=== PATIENT | female | born 1945 | race Caucasian/White ===

== ENCOUNTER 2017-08-07 08:00 | Outpatient (CLI) | payer MEDICARE, OTHER | END 2017-08-07 08:01 | disposition home or self-care (01) | LOC: LAB.WCP 08:00 | PROVIDERS: ATTEND Family Medicine | DX: R31.0 Gross hematuria (principal) | CPT/HCPCS: 87086 ==

== ENCOUNTER 2017-11-22 08:28 | Outpatient (CLI) | payer MEDICARE, OTHER ==
--- NOTE | 2017-11-22 10:55 | CT Report ---
DATE OF SERVICE: 11/22/2017 CT OF THE ABDOMEN AND PELVIS WITHOUT CONTRAST: 11/22/2017 CLINICAL INDICATION: Right flank pain. TECHNIQUE: Axial CT images of the abdomen and pelvis were obtained without oral or intravenous contrast, according to renal stone protocol. No previous CT is available for comparison. FINDINGS: Limited evaluation of the lung bases demonstrates mild emphysema. ABDOMEN: The liver is enlarged, measuring 22 cm craniocaudal. No focal hepatic lesion is seen. The spleen, pancreas, adrenal glands and left kidney appear unremarkable. The right kidney demonstrates a nonobstructing 7 x 7 x 6 mm calculus in the lower pole. The gallbladder is unremarkable. No bowel dilatation, free gas or free fluid is present. No abdominal adenopathy is present. PELVIS: Postoperative changes of hysterectomy are present. Incidental note is made of a vascular phlebolith in the right pelvis. No distal ureterolithiasis or bladder calculus is identified. No hydroureter is present. Osseous structures demonstrate degenerative changes. IMPRESSION: NONOBSTRUCTING 7 MM RIGHT RENAL CALCULUS. HEPATOMEGALY. In accordance with CT protocol optimization, one or more of the following dose reduction techniques were utilized for this exam: automated exposure control, adjustment of mA and/or KV based on patient size, or use of iterative reconstructive technique. TD: 11/22/2017 11:54
== END 2017-11-22 08:29 | disposition home or self-care (01) ==
LOC: DI 08:28
PROVIDERS: ATTEND Family Medicine
DX: N20.0 Calculus of kidney (principal); R16.0 Hepatomegaly, not elsewhere classified
CPT/HCPCS: 74176

== ENCOUNTER 2017-12-06 13:41 | Outpatient (CLI) | payer MEDICARE, OTHER ==
--- NOTE | 2017-12-06 16:06 | Mammography Report ---
DIGITAL DIAGNOSTIC BILATERAL MAMMOGRAM: 12/06/2017 CLINICAL INDICATION: Breast pain. TECHNIQUE: Bilateral CC, MLO, right true lateral views. At the time of the examination, the patient identified a focus of maximal tenderness in the right upper central breast, where markers were placed. COMPARISON: 10/14/2016, 11/20/2015, 10/21/2014, 10/07/2014, 07/31/2013, 2011, 03/09/2011, 02/02/2010. FINDINGS: The breasts again demonstrate heterogeneously dense fibroglandular parenchyma bilaterally. Coarse, typically benign calcifications are present. No suspicious masses, clustered microcalcifications, or regions of architectural distortion are identified. Specifically, no mammographic abnormality is appreciated in the right upper central breast, at the site indicated by the markers. IMPRESSION: BENIGN FINDINGS. RECOMMENDATION: ROUTINE ANNUAL SCREENING UNLESS OTHERWISE CLINICALLY INDICATED. BIRADS CATEGORY 2-BENIGN FINDINGS. STANDARD QUALIFYING STATEMENTS: 1. This examination was reviewed with the aid of Computer-Aided Detection (CAD). 2. A negative or benign imaging report should not delay biopsy if clinically suspicious findings are present. Consider surgical consultation if warranted. More than 5% of cancers are not identified by imaging. 3. Dense breasts may obscure an underlying neoplasm. TD: 12/06/2017 16:04
== END 2017-12-06 13:42 | disposition home or self-care (01) ==
LOC: DI 13:41
PROVIDERS: ATTEND Family Medicine
DX: N64.4 Mastodynia (principal)
CPT/HCPCS: 77066

== ENCOUNTER 2018-02-27 14:52 | Emergency (ER) | payer OTHER, MEDICARE ==
--- NOTE | 2018-02-27 15:43 | XRAY Report ---
EXAM: RIGHT SHOULDER RADIOGRAPHY EXAM DATE: 02/27/2018 03:32 PM. CLINICAL HISTORY: Fall, pain. COMPARISON: None. TECHNIQUE: 3 views. FINDINGS: Bones: Osteopenia. No definite fracture or other bone lesion. Joints: Moderate degenerative changes. Anatomic alignment. Soft tissues: Unremarkable. Clear visualized lung. IMPRESSION: Degenerative changes. No acute disease. [facility] Referring Provider Line: [phone] SITE ID: [id number]
--- NOTE | 2018-02-27 17:14 | CT Preliminary Report ---
Exam: CT UPPER EXTREMITY RIGHT W/O IMPRESSION: 1. AC joint shows moderate osteoarthritic change. The glenohumeral joint is unremarkable. 2. No fluid collections, no masses are seen. Visualized lungs appear unremarkable. Included ribs also show no fractures. [facility] SITE ID: [id number]
--- NOTE | 2018-02-27 17:17 | CT Report ---
EXAM: RIGHT CLAVICLE/STERNOCLAVICULAR JOINT CT WITHOUT CONTRAST EXAM DATE: 02/27/2018 04:38 PM. CLINICAL HISTORY: Severe shoulder pain status post fall, can't abduct. COMPARISON: None. TECHNIQUE: Thin-section axial images were acquired of the clavicle(s)/sternoclavicular joint(s) witho ut contrast. Post-processing: Coronal and sagittal reformats. Other: None. In accordance with CT protocol optimization, one or more of the following dose reduction techniques w ere utilized for this exam: automated exposure control, adjustment of mA and/or KV based on patient s ize, or use of iterative reconstructive technique. FINDINGS: Bones: No fracture or bone lesion. Joints: AC joint shows moderate osteoarthritic change. The glenohumeral joint is unremarkable. Musculature: Normal. No fatty atrophy. Other: No fluid collections, no masses are seen. Visualized lungs appear unremarkable. Included ribs also show no fractures. IMPRESSION: 1. AC joint shows moderate osteoarthritic change. The glenohumeral joint is unremarkable. 2. No fluid collections, no masses are seen. Visualized lungs appear unremarkable. Included ribs also show no fractures. [facility] Referring Provider Line: [phone] SITE ID: [id number]
--- NOTE | 2018-02-27 18:06 | ED Physician Documentation ---
History of Present Illness - Stated complaint Stated Complaint: RT SHLDR PX - Chief complaint Chief Complaint: Ext Problem - Additonal information Additional information: hx from pt 72 f missed bottom ring ladder and fell sideways striking head (no LOC) and right shoulder no LOC no NV no neck pain no numbness or weakness cant move R shoulder Review of Systems Musculoskeletal: reports: Joint pain (R shoulder). denies: Neck pain (no major severe pain) Neurologic: reports: Head injury. 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 - Present Medications Home Medications: Ambulatory Orders Medication Instructions Recorded Confirmed Aspirin [Aspir-Low] 81 mg PO DAILY 01/20/16 01/20/16 Citalopram Hydrobromide 40 mg PO DAILY 01/20/16 01/20/16 [Citalopram HBr] Cyclobenzaprine [Flexeril] 10 mg PO TID 01/20/16 01/20/16 Hydrochlorothiazide 25 mg PO DAILY 01/20/16 01/20/16 Levothyroxine [Synthroid] 75 mcg PO QDAC 01/20/16 01/20/16 Simvastatin 40 mg PO DAILY 01/20/16 01/20/16 Cyclobenzaprine [Flexeril] 10 mg PO TID PRN #20 tablet 02/27/18 Lidocaine Patch 5% [Lidoderm Patch] 1 each TOP DAILY PRN #10 patch 02/27/18 Losartan [Cozaar] 1 tab PO DAILY 02/27/18 02/27/18 - Allergies Allergies/Adverse Reactions: Allergies Allergy/AdvReac Type Severity Reaction Status Date / Time codeine AdvReac Itching Verified 02/27/18 15:06 meperidine HCl * AdvReac Nausea Verified 02/27/18 15:06 [From Demerol] - Social History Does the pt smoke?: No Smoking Status: Never smoker Does the pt drink ETOH?: No - Immunizations Immunizations are current?: Yes - POLST Patient has POLST: No PD ED PE NORMAL - Vitals Vital signs reviewed: Yes - HEENT HEENT: No: Atraumatic (small scalp hematoma), PERRL (post cataract surgery equal ) - Neck Neck: No bony TTP - Cardiac Cardiac: RRR - Respiratory Respiratory: No respiratory distress, Clear bilaterally - Extremities Extremities: Other (R shoulder: no clavicle AC or scapula TTP, TTP ant prox humerus, able to internally and externally rotate, unable to ABD at all, MSV intact) Results - Vitals Vitals: Vital Signs - 24 hr 02/27/18 15:01 Temperature 36.9 C Heart Rate 81 Respiratory 14 Rate Blood Pressure 156/88 H O2 Saturation 96 Oxygen O2 Source Room air - Rads (name of study) xray Radiology: See rad report (per rad no fx, per my read posible "light bulb" / pposterior dislocation, so got CT) CT Radiology: See rad report (OA of AC, glenohumeral jt unremarkable) Departure - Departure Disposition: Home, Self Care Clinical Impression: Rotator cuff (capsule) sprain Qualifiers: Encounter type: initial encounter Laterality: right Qualified Code(s): S43.421A - Sprain of right rotator cuff capsule, initial encounter Shoulder contusion Qualifiers: Encounter type: initial encounter Laterality: right Qualified Code(s): S40.011A - Contusion of right shoulder, initial encounter Instructions: ED Head Injury Closed, ED Torn Rotator Cuff Follow-Up: Christine Valeljo DO [Primary Care Provider] - [facility] [Provider Group] Prescriptions: Cyclobenzaprine [Flexeril] 10 mg PO TID PRN #20 tablet PRN Reason: Spasms Lidocaine Patch 5% [Lidoderm Patch] 1 each TOP DAILY PRN #10 patch PRN Reason: Pain Comments: The xray and the CT scan do not show any fractures or dislocations Because you are unable to lift your arm at all, I suspect you have injured the rotator cuff / torn a shoulder muscle For now it is OK for you to go home with a sling and pain medications ( lidocaine and a muscle relaxant and you can take tylenol as well) It is important that you take off the sling and do some hanging range of motion exercises every day to prevent scar tissue and adhesions from forming in your shoulder Also recommend ice to decrease pain and inflammation Please call orthopedics for follow up - you need to call the clinic to make an appointment Also I do not think you have a severe head injury, but please read over the head injury information and return to the ER if worse
[2018-02-27] MEDS ORDERED: ACETAMINOPHEN 325 MG TABLET PO STA (18:08)
[2018-02-27] MEDS ORDERED: LIDOCAINE PATCH 5% TOP PRN (18:08)
[2018-02-27] MEDS ORDERED: CYCLOBENZAPRINE 10 MG TABLET PO STA (18:08)
[2018-02-27 18:33] VITALS: BP 168/93
== END 2018-02-27 18:32 | disposition home or self-care (01) ==
LOC: ED 14:52
DX: S43.421A Sprain of right rotator cuff capsule, initial encounter (principal); S40.011A Contusion of right shoulder, initial encounter; S00.03XA Contusion of scalp, initial encounter; W11.XXXA Fall on and from ladder, initial encounter; Y99.0 Civilian activity done for income or pay; I10 Essential (primary) hypertension; E78.00 Pure hypercholesterolemia, unspecified; E03.9 Hypothyroidism, unspecified; Z79.82 Long term (current) use of aspirin
CPT/HCPCS: 1040M; 73030; 73200; 99283; A9270

== ENCOUNTER 2018-03-19 16:27 | Outpatient (CLI) | payer OTHER, MEDICARE ==
--- NOTE | 2018-03-20 08:28 | MRI Report ---
EXAM: RIGHT SHOULDER MRI WITHOUT CONTRAST EXAM DATE: 03/19/2018 05:16 PM. CLINICAL HISTORY: Right shoulder pain/weakness. COMPARISON: Radiographs 02/27/2018. TECHNIQUE: Multiplanar, multisequence T1-weighted and fluid-sensitive sequences of the shoulder witho ut contrast. Other: None. FINDINGS: Rotator Cuff: Ill-defined full-thickness tears involving the supraspinatus and infraspinatus measurin g greater than 4 cm anteroposterior with approximately 2.6 cm retraction. Mild supraspinatus and infr aspinatus atrophy. Moderate edema within the infraspinatus muscle and musculotendinous junction may r eflect a more recent injury. Small amount of thickening and increased T2 signal involving distal fibe rs of the upper subscapularis. Long Head Biceps Tendon: Intact, demonstrating normal course, signal and morphology. Labrum: Intact. No tear is identified. Bones and Articular Surfaces: No significant articular cartilage defects are seen. Superior subluxati on of the humeral head nearly articulating with the undersurface of the acromion. Acromioclavicular Joint: Ruff-zo-lydkljko degenerative change. Type II acromion. IMPRESSION: 1. Extensive full-thickness tears of the supraspinatus and infraspinatus with 2.6 cm retraction. 2. Prominent edema involving the infraspinatus muscle may reflect more recent infraspinatus injury. 3. Distal subscapularis tendinosis. 4. [id number]-[id number] degenerative change at the acromioclavicular joint. [facility] MUSCULOSKELETAL RADIOLOGY SECTION Referring Provider Line: [phone] SITE ID: [id number]
== END 2018-03-19 16:28 | disposition home or self-care (01) ==
LOC: DI 16:27
PROVIDERS: ATTEND Orthopaedic Surgery
DX: M25.511 Pain in right shoulder (principal); M75.101 Unspecified rotator cuff tear or rupture of right shoulder, not specified as traumatic

== ENCOUNTER 2018-05-29 08:17 | Outpatient (CLI) | payer MEDICARE, OTHER | END 2018-05-29 08:18 | disposition home or self-care (01) | LOC: DI 08:17 | PROVIDERS: ATTEND Family Medicine | DX: R06.00 Dyspnea, unspecified (principal); I51.7 Cardiomegaly | CPT/HCPCS: 93306 ==

== ENCOUNTER 2018-09-21 00:37 | Outpatient (CLI) | payer MEDICARE, OTHER | END 2018-09-21 00:38 | disposition critical access hospital (66) | LOC: EMS 00:37 | PROVIDERS: ATTEND Surgery | DX: R53.1 Weakness (principal); R10.9 Unspecified abdominal pain; R11.0 Nausea | CPT/HCPCS: A0425; A0427 ==

== ENCOUNTER 2018-09-21 00:50 | Emergency (ER) | payer MEDICARE, OTHER ==
[2018-09-21 01:03] VITALS: BP 143/68
--- NOTE | 2018-09-21 01:16 | ED Physician Documentation ---
History of Present Illness - Stated complaint Stated Complaint: ABD PAIN, NAUSEA - Chief complaint Chief Complaint: Neuro - History obtained from History obtained from: Patient, Family - History of Present Illness Timing: How many hours ago (2.5) Pain level max: 5 Pain level now: 0 Quality: crampy Radiates to: no Associated symptoms: nausea PD PAST MEDICAL HISTORY - Past Medical History Cardiovascular: Hypertension, High cholesterol Respiratory: None Endocrine/Autoimmune: HyPOthyroidism GI: None : None HEENT: Chronic hearing loss Psych: None Musculoskeletal: Other Derm: None - Past Surgical History Past Surgical History: Yes General: 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, 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 - Present Medications Home Medications: Ambulatory Orders Medication Instructions Recorded Confirmed Aspirin [Aspir-Low] 81 mg PO DAILY 01/20/16 01/20/16 Citalopram Hydrobromide 40 mg PO DAILY 01/20/16 01/20/16 [Citalopram HBr] Cyclobenzaprine [Flexeril] 10 mg PO TID 01/20/16 01/20/16 Hydrochlorothiazide 25 mg PO DAILY 01/20/16 01/20/16 Levothyroxine [Synthroid] 75 mcg PO QDAC 01/20/16 01/20/16 Simvastatin 40 mg PO DAILY 01/20/16 01/20/16 Cyclobenzaprine [Flexeril] 10 mg PO TID PRN #20 tablet 02/27/18 Lidocaine Patch 5% [Lidoderm Patch] 1 each TOP DAILY PRN #10 patch 02/27/18 Losartan [Cozaar] 1 tab PO DAILY 02/27/18 02/27/18 Cephalexin [Keflex] 500 mg PO TID 7 Days #21 capsule 09/21/18 - Allergies Allergies/Adverse Reactions: Allergies Allergy/AdvReac Type Severity Reaction Status Date / Time codeine AdvReac Itching Verified 02/27/18 15:06 meperidine HCl * AdvReac Nausea Verified 02/27/18 15:06 [From Demerol] - Social History Does the pt smoke?: No Smoking Status: Never smoker Does the pt drink ETOH?: No - Immunizations Immunizations are current?: Yes - POLST Patient has POLST: No Results - Vitals Vitals: Vital Signs - 24 hr 09/21/18 09/21/18 00:52 01:02 Temperature 36.6 C 36.6 C Heart Rate 71 70 Respiratory 18 16 Rate Blood Pressure 154/74 H 143/68 H O2 Saturation 97 98 Oxygen O2 Source Room air - EKG (time done) 0120 Rate: Rate (enter#) (76) Rhythm: NSR [place]: LAD Intervals: Normal [place] QRS: Normal Ischemia: Non specific changes Other comments: Other comments (artifacts) - Labs Labs: Laboratory Tests 09/21/18 09/21/18 09/21/18 01:21 01:21 01:21 WBC 14.3 H RBC 4.20 Hgb 13.4 Hct 39.5 MCV 94.2 MCH 32.0 H MCHC 34.0 RDW 13.1 Plt Count 236 MPV 7.4 L Neut # (Auto) 12.5 H Lymph # (Auto) 1.0 L [place] # (Auto) 0.6 Eos # (Auto) 0.2 Baso # (Auto) 0.0 Absolute Nucleated RBC 0.00 Nucleated RBC % 0.0 Sodium 138 Potassium 3.2 L Chloride 100 L Carbon Dioxide 28 Anion Gap 10.0 BUN 21 H Creatinine 0.7 Estimated GFR (MDRD) 82 L Glucose 134 H Calcium 9.2 Total Bilirubin 0.9 AST 29 ALT 21 Alkaline Phosphatase 67 Troponin I < 0.04 Total Protein 7.4 Albumin 4.3 Globulin 3.1 Albumin/Globulin Ratio 1.4 Lipase 30 Urine Color Urine Clarity Urine pH Ur Specific [place] Urine Protein Urine Glucose (UA) Urine Ketones Urine Occult Blood Urine Nitrite Urine Bilirubin Urine Urobilinogen Ur Leukocyte Esterase Urine RBC Urine WBC Ur Squamous Epith Cells Urine Bacteria Ur Microscopic Review Urine Culture Comments 09/21/18 03:25 WBC RBC Hgb Hct MCV MCH MCHC RDW Plt Count MPV Neut # (Auto) Lymph # (Auto) [place] # (Auto) Eos # (Auto) Baso # (Auto) Absolute Nucleated RBC Nucleated RBC % Sodium Potassium Chloride Carbon Dioxide Anion Gap BUN Creatinine Estimated GFR (MDRD) Glucose Calcium Total Bilirubin AST ALT Alkaline Phosphatase Troponin I Total Protein Albumin Globulin Albumin/Globulin Ratio Lipase Urine Color YELLOW Urine Clarity CLEAR Urine pH 6.0 Ur Specific [place] 1.020 Urine Protein NEGATIVE Urine Glucose (UA) NEGATIVE Urine Ketones NEGATIVE Urine Occult Blood NEGATIVE Urine Nitrite NEGATIVE Urine Bilirubin NEGATIVE Urine Urobilinogen 0.2 (NORMAL) Ur Leukocyte Esterase MODERATE H Urine RBC 0-5 Urine WBC 6-10 H Ur Squamous Epith Cells FEW Squamous Urine Bacteria Few Ur Microscopic Review INDICATED Urine Culture Comments INDICATED PD MEDICAL DECISION MAKING - ED course Complexity details: re-evaluated patient, considered differential (Gastritis, pancreatitis, atypical ACS, pneumonia, UTI, ), d/w patient, d/w family ED course: 0204 patient and spouse informed of test results. Patient states that she has no pain nor is she feeling nauseous. But she does feel dehydrated so we will give her IV fluids. She was also given potassium pill for a low potassium. 0300 patient tolerated oral fluids. IV infusing. Denies any pain or nausea. 03 56 inform of positive urinary tract infection. Patient wants to go home. We will discharged on Keflex. Departure - Departure Disposition: Home, Self Care Clinical Impression: Hypokalemia UTI (urinary tract infection) Qualifiers: Urinary tract infection type: acute cystitis Hematuria presence: without hematuria Qualified Code(s): N30.00 - Acute cystitis without hematuria Vomiting Qualifiers: Vomiting type: unspecified Vomiting Intractability: non-intractable Nausea presence: with nausea Qualified Code(s): R11.2 - Nausea with vomiting, unspecified Condition: Stable Instructions: ED Diet Vomiting Diarrhea, Diet Clear Liquid Dc, Diet High Potassium Dc, ED Bladder Infec Cystitis Female Ch Prescriptions: Cephalexin [Keflex] 500 mg PO TID 7 Days #21 capsule Comments: Drinks 6-8 glasses of water a day. Finish the prescribed antibiotic for your UTI. It foods that are high in potassium using the list that was given to you. Urine cultures also pending. Follow-up with your primary doctor in a week. If worse return to the emergency room.
--- NOTE | 2018-09-21 01:24 | XRAY Report ---
Reason: chest pain Procedure Date: 09/21/2018 Accession Number: [id number] / [id number] Procedure: XR - Chest 1 View X-Ray CPT Code: 69217 FULL RESULT: EXAM: CHEST RADIOGRAPHY EXAM DATE: 09/21/2018 01:17 AM. CLINICAL HISTORY: Chest pain. COMPARISON: None. TECHNIQUE: 1 view. FINDINGS: Lungs/Pleura: No focal opacities evident. No pleural effusion. No pneumothorax. Mediastinum: Within exam limitations, the cardiomediastinal contour is normal. Other: None. IMPRESSION: Normal single view chest. [facility]
[2018-09-21 01:26] LABS: EOSINOPHILS # (AUTO) 0.2 10^3/uL (0.0-0.7); EOSINOPHILS % (AUTO) 1.1 %; HGB - HEMOGLOBIN 13.4 g/dL (12.0-16.0); LYMPHOCYTES % (AUTO) 7.2 %; MEAN CORPUSCULAR VOLUME 94.2 fL (81.0-99.0); MEAN PLATELET VOLUME 7.4 fL (7.9-10.8); MONOCYTES # (AUTO) 0.6 10^3/uL (0.0-1.0); MONOCYTES % (AUTO) 4.1 %; NEUTROPHILS # (AUTO) 12.5 10^3/uL (1.5-6.6); NEUTROPHILS % (AUTO) 87.6 %; PLT - PLATELET COUNT 236 10^3/uL (130-450); RED CELL DISTRIBUTION WIDTH 13.1 % (12.0-15.0); WHITE BLOOD COUNT 14.3 x10^3/uL (4.8-10.8)
[2018-09-21 01:36] LABS: ALBUMIN 4.3 g/dL (3.2-5.5); ALBUMIN/GLOBULIN RATIO 1.4 (1.0-2.2); BILIRUBIN,TOTAL 0.9 mg/dL (0.2-1.0); CALCIUM 9.2 mg/dL (8.5-10.3); CREATININE 0.7 mg/dL (0.4-1.0); TOTAL PROTEIN 7.4 g/dL (6.7-8.2)
[2018-09-21] MEDS ORDERED: SODIUM CHLORIDE 0.9% 1,000 ML IV ONE (02:05)
[2018-09-21] MEDS ORDERED: POTASSIUM CHLORIDE 20 MEQ TABLET PO STA (02:09)
[2018-09-21 03:35] LABS: BILIRUBIN,URINE NEGATIVE (NEGATIVE); GLUCOSE, URINE (UA) NEGATIVE (NEGATIVE); KETONES,URINE (UA) NEGATIVE (NEGATIVE); LEUKOCYTE ESTERASE, URINE MODERATE (NEGATIVE); NITRITE,URINE NEGATIVE (NEGATIVE); OCCULT BLOOD,URINE NEGATIVE (NEGATIVE); PROTEIN,URINE NEGATIVE (NEGATIVE); UROBILINOGEN,URINE 0.2 (NORMAL) E.U./dL (NORMAL)
[2018-09-21 03:43] LABS: CLARITY,URINE CLEAR (CLEAR)
[2018-09-21 03:44] LABS: BACTERIA,URINE Few /HPF (None Seen); RBC,URINE 0-5 /HPF (0-5); SQUAMOUS EPITHELIAL CELL,UR FEW Squamous (<= Few)
== END 2018-09-21 04:09 | disposition home or self-care (01) ==
LOC: EDUNIT# → ED 00:50
DX: E87.6 Hypokalemia (principal); N30.00 Acute cystitis without hematuria; R11.2 Nausea with vomiting, unspecified; I10 Essential (primary) hypertension; Z79.82 Long term (current) use of aspirin
CPT/HCPCS: 36415; 71045; 80053; 81001; 83690; 84484; 85025; 87086; 96360; 99283; 99284; A9270; 81003

== ENCOUNTER 2018-09-27 08:00 | Outpatient (CLI) | payer MEDICARE, OTHER ==
[2018-09-27 12:57] LABS: BASOPHILS % (AUTO) 0.7 %; EOSINOPHILS # (AUTO) 0.4 10^3/uL (0.0-0.7); EOSINOPHILS % (AUTO) 6.3 %; LYMPHOCYTES # (AUTO) 1.7 10^3/uL (1.5-3.5); LYMPHOCYTES % (AUTO) 26.6 %; MEAN CORPUSCULAR HEMOGLOBIN 32.3 pg (27.0-31.0); MEAN CORPUSCULAR HGB CONC 34.2 g/dL (32.0-36.0); MEAN CORPUSCULAR VOLUME 94.5 fL (81.0-99.0); MEAN PLATELET VOLUME 7.9 fL (7.9-10.8); MONOCYTES # (AUTO) 0.5 10^3/uL (0.0-1.0); MONOCYTES % (AUTO) 7.1 %; NEUTROPHILS # (AUTO) 3.9 10^3/uL (1.5-6.6); NEUTROPHILS % (AUTO) 59.3 %; PLT - PLATELET COUNT 276 10^3/uL (130-450); RED BLOOD COUNT 4.02 10^6/uL (4.20-5.40); WHITE BLOOD COUNT 6.5 x10^3/uL (4.8-10.8)
[2018-09-27 14:46] LABS: CALCIUM 9.6 mg/dL (8.5-10.3); CREATININE 0.6 mg/dL (0.4-1.0)
== END 2018-09-27 23:59 | disposition home or self-care (01) ==
LOC: LAB.WCP 08:00
PROVIDERS: ATTEND Family Medicine
DX: I10 Essential (primary) hypertension (principal)
CPT/HCPCS: 36415; 80048; 85025

== ENCOUNTER 2019-05-14 08:00 | Outpatient (CLI) | payer MEDICARE, OTHER ==
[2019-05-14 13:37] LABS: BASOPHILS # (AUTO) 0.1 10^3/uL (0.0-0.1); BASOPHILS % (AUTO) 0.8 %; EOSINOPHILS # (AUTO) 0.4 10^3/uL (0.0-0.7); EOSINOPHILS % (AUTO) 6.8 %; HGB - HEMOGLOBIN 11.7 g/dL (12.0-16.0); LYMPHOCYTES # (AUTO) 1.4 10^3/uL (1.5-3.5); LYMPHOCYTES % (AUTO) 22.5 %; MEAN CORPUSCULAR HEMOGLOBIN 30.5 pg (27.0-31.0); MEAN CORPUSCULAR HGB CONC 32.5 g/dL (32.0-36.0); MEAN PLATELET VOLUME 9.7 fL (7.9-10.8); MONOCYTES # (AUTO) 0.5 10^3/uL (0.0-1.0); MONOCYTES % (AUTO) 7.7 %; NEUTROPHILS # (AUTO) 3.7 10^3/uL (1.5-6.6); NEUTROPHILS % (AUTO) 61.9 %; PLT - PLATELET COUNT 375 10^3/uL (130-450); RED BLOOD COUNT 3.83 10^6/uL (4.20-5.40); RED CELL DISTRIBUTION WIDTH 12.4 % (12.0-15.0)
[2019-05-14 13:44] LABS: ALBUMIN 3.8 g/dL (3.2-5.5); ALBUMIN/GLOBULIN RATIO 1.1 (1.0-2.2); ALKALINE PHOSPHATASE 88 IU/L (42-121); ALT ALANINE AMINOTRANSFERASE 18 IU/L (10-60); AST ASPARTATE AMINOTRANSFERASE 21 IU/L (10-42); BILIRUBIN,TOTAL 0.6 mg/dL (0.2-1.0); BUN - BLOOD UREA NITROGEN 16 mg/dL (6-20); CALCIUM 9.6 mg/dL (8.5-10.3); CARBON DIOXIDE - CO2 27 mmol/L (21-32); CHLORIDE 103 mmol/L (101-111); CHOL/HDL RATIO 3.5 (<4.4); CHOLESTEROL 165 mg/dL; CREATININE 0.5 mg/dL (0.4-1.0); GFR - MDRD 120 (>89); GLUCOSE 108 mg/dL (70-100); HDL CHOLESTEROL 47 mg/dL; LDL CHOLESTEROL,CALCULATED 105 mg/dL; LDL/HDL RATIO 2.2 (<4.4); SODIUM 142 mmol/L (135-145); TOTAL PROTEIN 7.3 g/dL (6.7-8.2); VLDL CHOLESTEROL 13 mg/dL
== END 2019-05-14 23:59 | disposition home or self-care (01) ==
LOC: LAB.WCP 08:00
PROVIDERS: ATTEND Family Medicine
DX: I10 Essential (primary) hypertension (principal); E78.5 Hyperlipidemia, unspecified; E03.9 Hypothyroidism, unspecified
CPT/HCPCS: 36415; 80053; 80061; 83721; 84443; 85025

== ENCOUNTER 2020-04-20 11:19 | Observation (INO) | payer MEDICARE, OTHER ==
[2020-04-20 12:11] LABS: BASOPHILS # (AUTO) 0.1 10^3/uL (0.0-0.1); BASOPHILS % (AUTO) 0.8 %; EOSINOPHILS # (AUTO) 0.3 10^3/uL (0.0-0.7); EOSINOPHILS % (AUTO) 5.2 %; LYMPHOCYTES # (AUTO) 1.8 10^3/uL (1.5-3.5); LYMPHOCYTES % (AUTO) 30.2 %; MEAN CORPUSCULAR HEMOGLOBIN 32.6 pg (27.0-31.0); MEAN CORPUSCULAR HGB CONC 34.5 g/dL (32.0-36.0); MEAN CORPUSCULAR VOLUME 94.5 fL (81.0-99.0); MEAN PLATELET VOLUME 9.6 fL (7.9-10.8); MONOCYTES # (AUTO) 0.5 10^3/uL (0.0-1.0); MONOCYTES % (AUTO) 7.9 %; NEUTROPHILS # (AUTO) 3.3 10^3/uL (1.5-6.6); NEUTROPHILS % (AUTO) 55.6 %; PLT - PLATELET COUNT 297 10^3/uL (130-450); RED BLOOD COUNT 3.99 10^6/uL (4.20-5.40); RED CELL DISTRIBUTION WIDTH 12.2 % (12.0-15.0)
--- NOTE | 2020-04-20 12:24 | ED Physician Documentation ---
PD HPI FOCAL NEURO - Stated complaint Stated Complaint: L SIDE NUMBNESS - Chief complaint Chief Complaint: Neuro - History obtained from History obtained from: Patient - Additional information Additional information: 74-year-old woman with history of migraines and hypertension, otherwise very healthy. At 1035 this morning she developed numbness in the left tongue , Left side of the lips and left hand. She noticed nothing in the leg and there was no associated weakness. She has a mild right-sided headache with this. No history of stroke or TIA. No history of heart problems other than hypertension. 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 - Present Medications Home Medications: Ambulatory Orders Medication Instructions Recorded Confirmed Aspirin [Aspir-Low] 81 mg PO DAILY 01/20/16 01/20/16 Citalopram Hydrobromide 40 mg PO DAILY 01/20/16 01/20/16 [Citalopram HBr] Cyclobenzaprine [Flexeril] 10 mg PO TID 01/20/16 01/20/16 Hydrochlorothiazide 25 mg PO DAILY 01/20/16 01/20/16 Levothyroxine [Synthroid] 75 mcg PO QDAC 01/20/16 01/20/16 Simvastatin 40 mg PO DAILY 01/20/16 01/20/16 Cyclobenzaprine [Flexeril] 10 mg PO TID PRN #20 tablet 02/27/18 Lidocaine Patch 5% [Lidoderm Patch] 1 each TOP DAILY PRN #10 patch 02/27/18 Losartan [Cozaar] 1 tab PO DAILY 02/27/18 02/27/18 Cephalexin [Keflex] 500 mg PO TID 7 Days #21 capsule 09/21/18 - Allergies Allergies/Adverse Reactions: Allergies Allergy/AdvReac Type Severity Reaction Status Date / Time codeine AdvReac Itching Verified 04/20/20 11:28 meperidine HCl * AdvReac Nausea Verified 04/20/20 11:28 [From Demerol] - Social History Does the pt smoke?: No Smoking Status: Never smoker Does the pt drink ETOH?: No - Immunizations Immunizations are current?: Yes - POLST Patient has POLST: No PD ED PE NORMAL - Vitals Vital signs reviewed: Yes - General General: Alert and oriented X 3, No acute distress - HEENT HEENT: PERRL, EOMI - Neck Neck: Supple, no meningeal sign, No bony TTP - Cardiac Cardiac: RRR, No murmur - Respiratory Respiratory: No respiratory distress, Clear bilaterally - Abdomen Abdomen: Non tender - Back Back: No CVA TTP, No spinal TTP - Derm Derm: Normal color, Warm and dry - Extremities Extremities: Other (Although she complains of numbness in the left hand and left periorbital area, I am unable to corroborate this on examination.) - Neuro Neuro: Alert and oriented X 3, No motor deficit, No sensory deficit, Normal speech Eye Opening: Spontaneous Motor: Obeys Commands Verbal: Oriented GCS Score: 15 - Psych Psych: Normal mood NIHSS - Time Time: 12:05 - Level of Consciousness Level of consciousness: (0) Alert, Keenly responsive LOC Questions: (0) Answers both Q's correct LOC Commands: (0) Performs both correctly - Gaze Best Gaze: (0) Normal - Visual Visual: (0) No loss - Facial Palsy Facial Palsy: (0) Normal, symmetrical movement - Motor Arms (both separate) Motor Arm (right): (0) No drift Motor Arm (left): (0) No drift - Motor Legs (both separate) Motor Leg (right): (0) No drift Motor Leg (left): (0) No drift - Limb Ataxia Limb Ataxia: (0) Absent - Sensory Sensory: (0) Normal (Although she complains of numbness in the left hand and left periorbital area, I am unable to corroborate this on examination.) - Best Language Best Language: (0) No aphasia - Dysarthria Dysarthria: (0) Normal - Extinction and Inattention (formally neg Extinction and inattention: (0) No abnormality - Total Score/Results Total Score/Result: 0 Results - Vitals Vitals: Vital Signs - 24 hr 04/20/20 04/20/20 04/20/20 11:24 11:28 12:28 Temperature 97.5 C H Heart Rate 87 83 80 Respiratory 16 16 24 Rate Blood Pressure 145/87 H 166/90 H 158/103 H O2 Saturation 98 98 98 04/20/20 12:30 Temperature Heart Rate 78 Respiratory 28 H Rate Blood Pressure 152/78 H O2 Saturation 97 Oxygen O2 Source Room air - EKG (time done) 1143 Rate: Rate (enter#) (86) Rhythm: NSR [place]: LAD Intervals: Normal [place] QRS: Normal Ischemia: Non specific changes - Labs Labs: Laboratory Tests 04/20/20 04/20/20 04/20/20 11:34 11:47 11:47 WBC 6.0 RBC 3.99 L Hgb 13.0 Hct 37.7 MCV 94.5 MCH 32.6 H MCHC 34.5 RDW 12.2 Plt Count 297 MPV 9.6 Neut # (Auto) 3.3 Lymph # (Auto) 1.8 [place] # (Auto) 0.5 Eos # (Auto) 0.3 Baso # (Auto) 0.1 Absolute Nucleated RBC 0.00 Nucleated RBC % 0.0 Sodium 141 Potassium 3.3 L Chloride 96 L Carbon Dioxide 30 Anion Gap 15.0 H BUN 16 Creatinine 0.6 Estimated GFR (MDRD) 97 Glucose 105 H POC Whole Bld Glucose 107 H Calcium 10.1 Total Bilirubin 0.9 AST 24 ALT 20 Alkaline Phosphatase 60 Troponin I High Sens Total Protein 7.2 Albumin 4.5 Globulin 2.7 Albumin/Globulin Ratio 1.7 Lipase 79 H 04/20/20 11:47 WBC RBC Hgb Hct MCV MCH MCHC RDW Plt Count MPV Neut # (Auto) Lymph # (Auto) [place] # (Auto) Eos # (Auto) Baso # (Auto) Absolute Nucleated RBC Nucleated RBC % Sodium Potassium Chloride Carbon Dioxide Anion Gap BUN Creatinine Estimated GFR (MDRD) Glucose POC Whole Bld Glucose Calcium Total Bilirubin AST ALT Alkaline Phosphatase Troponin I High Sens 4.1 Total Protein Albumin Globulin Albumin/Globulin Ratio Lipase - Rads (name of study) CT/CTA head/neck Radiology: EMP read contemporaneously (No sign of stroke or hemorrhage, 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 She is in the window but with an NIH stroke scale of 0 I did not think TPA was indicated. After CT imaging the case was discussed by phone with Dr. Mccormack, neurology at [facility] who personally reviewed the images. Recommends medical management only with dual antiplatelet therapy for 90 days then aspirin alone as well as statin and blood pressure management. Recommends keeping her in the hospital for an MRI. Departure - Departure Disposition: ED Place in Observation Clinical Impression: TIA (transient ischemic attack) Condition: Stable
[2020-04-20 12:26] LABS: ALBUMIN 4.5 g/dL (3.2-5.5); ALBUMIN/GLOBULIN RATIO 1.7 (1.0-2.2); BILIRUBIN,TOTAL 0.9 mg/dL (0.2-1.0); CALCIUM 10.1 mg/dL (8.5-10.3); CREATININE 0.6 mg/dL (0.4-1.0); TOTAL PROTEIN 7.2 g/dL (6.7-8.2)
--- NOTE | 2020-04-20 12:53 | CT Report ---
PROCEDURE: ANGIO HEAD W/WO INDICATIONS: stroke like sx CONTRAST: IV CONTRAST: Optiray 320 ml: 80 PO CONTRAST: *NO PO CONTRAST TECHNIQUE: Precontrast images were performed separately and reported separately. After the administration of int ravenous contrast, 1 mm thick sections acquired through the [place] of [place]. Postcontrast 4.5 mm th ick sections then re-acquired from the foramen magnum to the vertex. 3-dimensional maximum-intensity -projection (MIP) and/or volume rendering reformats were acquired of the central intracranial vascula ture. For radiation dose reduction, the following was used: automated exposure control, adjustment of mA and/or kV according to patient size. COMPARISON: Prior head CT 12/01/2014. Correlation is also made with the accompanying neck angiogram an d noncontrast head CT. FINDINGS: Image quality: Excellent. Anterior circulation: Intracranial internal carotid arteries are normal in size and flow. Note is m kamari of a diminutive left A1 segment, with a correspondingly robust right A1 segment. This is consider ed to be a developmental variant of no clinical consequence. The flow within the paired anterior cer ebral arteries is otherwise normal and symmetric. The flow within the middle cerebral arteries is no rmal and symmetric. The anterior communicating artery is seen. No aneurysms are seen. Posterior circulation: Visualized portions of the vertebral arteries demonstrate normal caliber. Th e left vertebral artery largely terminates in the left posterior inferior cerebellar artery. The basi lar artery is small in size. Bilateral type origins of the posterior cerebral arteries can be s een, with associated hypoplastic P1 segments. Flow within the posterior cerebral arteries is normal a nd symmetric. No aneurysms are seen. CSF spaces: Ventricles are normal in size and shape. Basal cisterns are patent. No extra-axial flu id collections. Brain: No midline shift. No intracranial bleeds or masses. Harper-white matter interface appears int act. Skull and face: Calvarium and facial bones appear intact, without suspicious lesions. Sinuses: Visualized sinuses and mastoids are clear. IMPRESSION: No significant intracranial arterial abnormality can be seen. Note is made of several arterial developmental variants, which are likely of no clinical consequence. Note: Case discussed by telephone with Dr. Quispe at 11:50 AM a left [place] time on 04/20/2020. Reviewed by: Wilmer Hodgson MD on 04/20/2020 11:52 AM AKDT Approved by: Wilmer Hodgson MD on 04/20/2020 11:52 AM CHRIS Station ID: [id number]
[2020-04-20] MEDS ORDERED: ASPIRIN CHEW 81 MG TABLET PO STA (13:02)
--- NOTE | 2020-04-20 13:13 | CT Report ---
PROCEDURE: ANGIO NECK W INDICATIONS: stroke like sx CONTRAST: IV CONTRAST: Optiray 320 ml: 80 PO CONTRAST: *NO PO CONTRAST TECHNIQUE: After the administration of intravenous contrast, 1.5 mm axial sections acquired from the aortic arch to the [place] of [place]. Coronal 3-D maximum intensity projection (MIP) and/or volume rendering ref ormats were then performed. For radiation dose reduction, the following was used: automated exposur e control, adjustment of mA and/or kV according to patient size. COMPARISON: Correlation is made with the accompanying noncontrast head CT and the accompanying CT an giogram of the head dated 04/20/2020. Correlation is also made with a prior noncontrast head CT dated 12/01/2014. FINDINGS: Image quality: Excellent. Carotid system: The great vessels demonstrate a conventional anatomy as they arise from the aortic a rch. The origins of the common carotid arteries appear patent. The common carotid arteries demonstr ate normal calibers. There is tortuosity seen of the proximal common carotid arteries. The bifurcati on regions appear normal bilaterally. The internal carotid arteries demonstrate normal caliber. Mode rate tortuosity can be seen of the mid internal carotid arteries. Posterior circulation: The origins of the vertebral arteries appear patent. Within the proximal bas ilar artery, there are 2 areas of high-grade stenosis seen, as on series 4 image 90 and on series 4 i mage 87. The basilar artery is small in size and demonstrates generalized irregularity. The distal le ft vertebral artery largely terminates in the left posterior inferior cerebellar artery. Soft tissues: Visualized neck soft tissues demonstrate no suspicious abnormalities. The thyroid gla nd is normal in size. Bones: No suspicious bony lesions. Visualized cervical spine appears normally aligned. Moderate to prominent cervical spine degenerative changes are seen. Focal prominent degenerative change is al so seen involving the left sternoclavicular joint. 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 The basilar artery demonstrates generalized irregularity. Note is made of tortuous proximal common carotid arteries and tortuous internal carotid arteries. Note: Case discussed by telephone with Dr. Quispe at 11:57 AM a left [place] time on 04/20/2020. The estimate of stenosis included in the report of the imaging study was calculated using the NASCET method Reviewed by: Wilmer Hodgson MD on 04/20/2020 12:11 PM AKDT Approved by: Wilmer Hodgson MD on 04/20/2020 12:11 PM CHRIS Station ID: [id number]
--- NOTE | 2020-04-20 13:14 | CT Report ---
PROCEDURE: HEAD WO INDICATIONS: stroke like sx TECHNIQUE: Noncontrast 4.5 mm thick angled axial sections acquired from the foramen magnum to the vertex. For r adiation dose reduction, the following was used: automated exposure control, adjustment of mA and/or kV according to patient size. COMPARISON: 12/01/2014. Correlation is made with the accompanying head CT angiogram and neck CT angiog fior 04/20/2020. FINDINGS: Image quality: Excellent. CSF spaces: Basal cisterns are patent. No extra-axial fluid collections. Ventricles are normal in size and shape. Brain: No midline shift. No intracranial masses or hemorrhage. Harper-white matter interface is norm al. Skull and face: Calvarium and visualized facial bones are intact, without suspicious lesions. Sinuses: Visualized sinuses and mastoids are clear. IMPRESSION: No significant intracranial abnormality is seen. Note: Case discussed by telephone with Dr. Quispe at 11:50 AM a left [place] time on 04/20/2020. Reviewed by: Wilmer Hodgson MD on 04/20/2020 12:12 PM CHRIS Approved by: Wilmer Hodgson MD on 04/20/2020 12:12 PM AKMERLIN Station ID: [id number]
[2020-04-20] MEDS ORDERED: CLOPIDOGREL 300 MG TABLET PO STA (13:27)
[2020-04-20] MEDS ORDERED: ONDANSETRON 4 MG/2 ML VIAL IVP PRN (13:33)
[2020-04-20] MEDS ORDERED: SODIUM CHLORIDE FLUSH 0.9% 10 ML SYRINGE IVP PRN (13:33)
[2020-04-20] MEDS ORDERED: POTASSIUM CHLORIDE 20 MEQ TABLET PO STA (13:38)
--- NOTE | 2020-04-20 13:39 | HISTORY & PHYSICAL EXAMINATION ---
Chief Complaint - Chief Complaint Chief Complaint: Tongue numbness and left arm numbness History of Present Illness - Admitted From Admitted From:: Home - History Obtained From Records Reviewed: Yes History obtained from: Patient, Spouse, ER Physician, EMR - History of Present Illness HPI Comment/Other: This is a pleasant 74-year-old female with a past medical history significant for hypertension, hyperlipidemia, hypothyroidism, depression who presents today complaining of left-sided tongue numbness and left arm numbness that began around 1030am. She states her symptoms began this morning after she sneezed and coughed. She first noted the left side of her tongue was numb and the roof of her mouth became numb as well. Shortly after this the lateral aspect of her left hand became numb in the first 3 digits. She reports no associated weak ness, slurred speech, dysphagia. She does report having a mild headache this morning but not as bad as the migraines she has at times. She reports no nausea, vomiting, abdominal pain, chest pain, dyspnea, dizziness, lightheadedness. She feels that the numbness in her left hand is improving slowly but her symptoms still persist. She also still has numbness in the left side of her tongue and the roof of her mouth. She reports no prior history of atrial fibrillation. Denies a history of diabetes. She not had prior strokes or TIAs. She did take a baby aspirin this morning and it is a home medication but she reports she usually does not take it and this past week she did not take a single dose. In the emergency department, a CT of the head was obtained which was unremarkable. CTA of the head showed no significant intracranial abnormalities. 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 Findings were reviewed with neurology at [facility] who recommended medical management only. Neurology recommended dual antiplatelet therapy for 90 days followed by aspirin alone. Given the findings above, the patient will be admitted for further medical management. I did discuss goals of care the patient and she like to be a full code. We did discuss filling out a POLST form and she will consider this on an outpatient basis with her primary care provider. History - Past Medical History Cardiovascular: reports: Hypertension, High cholesterol Respiratory: reports: None Endocrine/Autoimmune: reports: HyPOthyroidism GI: reports: None : reports: None HEENT: reports: Chronic hearing loss Psych: reports: None Musculoskeletal: reports: Osteoarthritis Derm: reports: None MRSA Hx?: No - Past Surgical History General: reports: 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, Colonoscopy /MEDICATION RECONCILIATION TECHNICIAN: reports: Hysterectomy - Family & Social History Family History Comment/Other: Reports no family history of strokes or TIAs. Both of her parents had coronary artery disease. Living arrangement: At home Living Situation: With spouse/s.o. Social History Notes: She lives at home with her . She is retired but previously worked at [employer]. She smoked a pack a day for 10 years but quit over 50 years ago. She will have an occasional glass of wine. - POLST Patient has POLST: No Meds/Allgy - Home Medications Home Medications: Ambulatory Orders Medication Instructions Recorded Confirmed Aspirin [Aspir-Low] 81 mg PO DAILY 01/20/16 04/20/20 Citalopram Hydrobromide 40 mg PO DAILY 01/20/16 04/20/20 [Citalopram HBr] Hydrochlorothiazide 25 mg PO DAILY 01/20/16 04/20/20 Levothyroxine [Synthroid] 75 mcg PO QDAC 01/20/16 04/20/20 Simvastatin 40 mg PO DAILY 01/20/16 04/20/20 Cyclobenzaprine [Flexeril] 10 mg PO TID PRN #20 tablet 02/27/18 04/20/20 Losartan [Cozaar] 100 mg PO DAILY 02/27/18 04/20/20 Alendronate Sodium 70 mg PO Q7D 04/20/20 04/20/20 Fluticasone [Flonase] 1 spray LLOYD PRN PRN 04/20/20 04/20/20 - Allergies Allergies/Adverse Reactions: Allergies Allergy/AdvReac Type Severity Reaction Status Date / Time codeine AdvReac Itching Verified 04/20/20 11:28 meperidine HCl * AdvReac Nausea Verified 04/20/20 11:28 [From Demerol] Review of Systems - Constitutional Constitutional: denies: Fatigue, Fever, Chills - Eyes Eyes: denies: Blurred vision, Vision loss - Ears, Nose & Throat Ears, Nose & Throat: reports: Other (Tongue numbness.). denies: Nasal conges tion, Sore throat - Cardiovascular Cariovascular: denies: Palpitations, Chest pain, Edema, Lightheadedness, Syncope, Exertional dyspnea, Decr. exercise tolerance - Respiratory Respiratory: denies: Cough, SOB at rest, SOB with exertion - Gastrointestinal Gastrointestinal: denies: Abdominal pain, Nausea, Vomiting - Genitourinary Genitourinary: denies: Dysuria, Frequency, Urgency, Hematuria - Musculoskeletal Musculoskeletal: denies: Muscle pain, Muscle weakness - Integumentary Integumentary: denies: Rash - Neurological Neurological: reports: Headache, Numbness. denies: General weakness, Focal weakness, Dizziness - All Other Systems All Other Systems: reports: Reviewed and negative Prior Level of Functionality: She is independent with her ADLs. Exam - Vital Signs Reviewed Vital Signs: Yes Vital Signs: Vital Signs x48h Temp Pulse Resp BP Pulse Ox 04/20/20 12:30 78 28 H 152/78 H 97 04/20/20 12:28 80 24 158/103 H 98 04/20/20 11:28 83 16 166/90 H 98 04/20/20 11:24 97.5 C H 87 16 145/87 H 98 - Physical Exam General Appearance: positive: No acute distress, Alert Eyes Bilateral: positive: Normal inspection, Conjunctivae nml ENT: positive: ENT inspection nml Neck: positive: Nml inspection Respiratory: positive: No respiratory distress. negative: Wheezes, Rales, Rhonchi Cardiovascular: positive: Regular rate & rhythm, Systolic murmur. negative: Tachycardia, Bradycardia, Diastolic murmur Abdomen: positive: Non-tender, No distention. negative: Tenderness, Guarding, Rebound Skin: positive: Warm, Dry Extremities: positive: Full ROM, No pedal edema Neurologic/Psychiatric: positive: Oriented x3, Motor nml, Sensation nml, Other. negative: Disoriented to person, Disoriented to place, Disoriented to time, Facial droop, Slurred/abnml speech (Cranial nerves are grossly intact. She has no focal deficits on exam. Sensation is intact in all 4 extremities and her face.) Conclusion/Plan - Problem List (1) TIA (transient ischemic attack) Conclusion/Plan: She presents with left-sided hand numbness and left-sided tongue numbness as well as roof of the mouth. CTA of the neck with significant for 2 stenoses in the basilar artery. She has no motor deficits on exam. She was given a loading dose of Plavix and aspirin in the emergency department. We will continue her on aspirin 81 mg daily and Plavix 75 mg daily as recommended by neurology. She will need dual antiplatelets for 3 months and then aspirin alone thereafter. We will discontinue her simvastatin and start her on Lipitor 80 mg every evening. We will check an A1c and lipid panel. Obtain echocardiogram with bubble study. Obtain MRI. Monitor her on telemetry. Neurochecks. (2) Hypertension Conclusion/Plan: Her blood pressures currently elevated with systolics ranging in the 140s to 150s. We will resume her home antihypertensives tomorrow if she remains hypertensive, we will adjust these as necessary. (3) Hypothyroidism Conclusion/Plan: Continue her home Synthroid and check a TSH in the morning (4) Depression Conclusion/Plan: Stable. Continue Celexa. (5) Hyperlipidemia Conclusion/Plan: Check a fasting lipid panel in the morning. Will discontinue simvastatin and start her on Lipitor 80 mg given the concern for TIA and the findings on CTA of the neck. - Lab Results Lab results reviewed: Yes Fish Bones: 04/20/20 11:47 04/20/20 11:47 - Diagnostic Imaging Results Diagnostic Imaging Results: positive: Final report reviewed - EKG Results EKG Interpreted Independently: Yes EKG Findings: KG shows sinus rhythm with nonspecific ST segment changes. Core Measures - Anticipated LOS I expect patient to be DC'd or transferred within 96 hours.: Yes - Issues Hospital Issues and Management Plan: 74-year-old female presents left-sided numbness found to have basilar stenosis on CTA of the neck. Will admit for TIA and start on dual antiplatelets as recommended by neurology. Will obtain MRI, echocardiogram, monitor on telemetry . - DVT/VTE - Prophylaxis VTE/DVT Device ordered at admit?: Yes VTE/DVT Prophylaxis med ordered at admit?: Yes
[2020-04-20] MEDS ORDERED: IOVERSOL 320 100 ML VIAL IVP ONE ×2 (13:40→15:17)
--- NOTE | 2020-04-20 14:31 | PHARMACY PROGRESS NOTE ---
- Best Possible Medication History Admit Date and Time: 04/20/20 1333 Processed by: Pharmacy Medication History completed: Yes Patient Interview: Pt unable to participate Secondary Source(s): Insurance records As the person ultimately responsible for medication therapy, providers are able to order a medication from an existing home medication list in [facility] via the "Reconcile Routine" prior to Confirmation of that medication by software support representative. Such practice is discouraged except when the physician, in their clinical judgment, deems that a medical need exists for a medication without regard to previous use.
[2020-04-20] MEDS ORDERED: FLUTICASONE NASAL SPRAY NAS PRN (15:17)
[2020-04-20] MEDS: ACETAMINOPHEN 325 MG TABLET PO PRN ×2 (16:52→20:59)
[2020-04-20] MEDS: SODIUM CHLORIDE FLUSH 0.9% 10 ML SYRINGE IVP SCH (20:40)
[2020-04-20] MEDS ORDERED: ATORVASTATIN 40 MG TABLET PO SCH (21:00)
--- NOTE | 2020-04-20 21:46 | MRI Report ---
PROCEDURE: Brain W/O INDICATIONS: Neuro deficit. Left upper extremity numbness. TIA. TECHNIQUE: Noncontrast axial T1 spin echo, axial T2 fast spin echo, sagittal and axial FLAIR, coronal T2 fast sp in echo, axial gradient echo, axial diffusion and ADC through the brain. COMPARISON: None. FINDINGS: Image quality: Excellent. CSF Spaces: Basal cisterns are patent. No extra-axial fluid collections. Ventricles are normal in size and shape. Brain: No intracranial masses or hemorrhage. Harper/white matter interface is normal. Brainstem appe ars normal. Diffusion-weighted images demonstrate no acute ischemic insult. No chronic ischemic ins ults. Normal intravascular flow voids are present. Skull and face: Calvarium has normal marrow signal. Orbits appear normal. Sinuses: Sinuses and mastoids are clear. IMPRESSION: 1. No acute intracranial process. No acute ischemia. 2. Mild atrophy and chronic microvascular ischemic changes. Reviewed by: Aster Ramon MD on 04/20/2020 9:44 PM PDT Approved by: Aster Ramon MD on 04/20/2020 9:44 PM PDT Station ID: [id number]
[2020-04-21 06:09] LABS: BASOPHILS % (AUTO) 0.6 %; EOSINOPHILS # (AUTO) 0.4 10^3/uL (0.0-0.7); EOSINOPHILS % (AUTO) 6.7 %; HGB - HEMOGLOBIN 12.1 g/dL (12.0-16.0); LYMPHOCYTES # (AUTO) 1.9 10^3/uL (1.5-3.5); LYMPHOCYTES % (AUTO) 35.3 %; MEAN CORPUSCULAR HEMOGLOBIN 32.2 pg (27.0-31.0); MEAN CORPUSCULAR HGB CONC 34.1 g/dL (32.0-36.0); MEAN CORPUSCULAR VOLUME 94.4 fL (81.0-99.0); MEAN PLATELET VOLUME 9.2 fL (7.9-10.8); MONOCYTES # (AUTO) 0.4 10^3/uL (0.0-1.0); MONOCYTES % (AUTO) 7.7 %; NEUTROPHILS # (AUTO) 2.7 10^3/uL (1.5-6.6); NEUTROPHILS % (AUTO) 49.5 %; PLT - PLATELET COUNT 268 10^3/uL (130-450); RED BLOOD COUNT 3.76 10^6/uL (4.20-5.40); RED CELL DISTRIBUTION WIDTH 12.2 % (12.0-15.0); WHITE BLOOD COUNT 5.4 x10^3/uL (4.8-10.8)
[2020-04-21] MEDS: SODIUM CHLORIDE FLUSH 0.9% 10 ML SYRINGE IVP SCH ×2 (06:13→08:13)
[2020-04-21 06:26] LABS: HB2 TOTAL 12.5 g/dL; HEMOGLOBIN A1C 0.51 g/dL; HEMOGLOBIN A1C % 5.9 % (4.6-6.2)
[2020-04-21 06:28] LABS: CHOL/HDL RATIO 3.4 (<4.4); CHOLESTEROL 165 mg/dL; HDL CHOLESTEROL 49 mg/dL; LDL CHOLESTEROL,CALCULATED 93 mg/dL; LDL/HDL RATIO 1.9 (<4.4); VLDL CHOLESTEROL 23 mg/dL
[2020-04-21] MEDS ORDERED: LEVOTHYROXINE 75 MCG TABLET PO SCH (07:00)
[2020-04-21] MEDS ORDERED: ENOXAPARIN 40 MG/0.4 ML SYRINGE SUBQ SCH (09:00)
[2020-04-21] MEDS ORDERED: CITALOPRAM HYDROBROMIDE 20 MG TABLET PO SCH (09:00)
[2020-04-21] MEDS ORDERED: ASPIRIN CHEW 81 MG TABLET PO SCH (09:00)
[2020-04-21] MEDS ORDERED: CLOPIDOGREL 75 MG TABLET PO SCH (09:00)
[2020-04-21] MEDS ORDERED: LOSARTAN 50 MG TABLET PO SCH (09:00)
[2020-04-21] MEDS ORDERED: hydroCHLOROthiazide 25 MG TABLET PO SCH (09:00)
[2020-04-21 09:52] LABS: CALCIUM 9.2 mg/dL (8.5-10.3); CREATININE 0.6 mg/dL (0.4-1.0)
--- NOTE | 2020-04-21 11:08 | Discharge Plan ---
Discharge Plan Problem Reviewed?: Yes Disposition: Home, Self Care Condition: Stable Prescriptions: Clopidogrel [Plavix] 75 mg PO DAILY #30 tablet Diet: Regular Activity Restrictions: Activity as Tolerated Shower Restrictions: No (fall precaution) Instruction Topics: Clopidogrel Bisulfate Oral tablet, TIA Health Concerns: transient ischemic attack Plan of Treatment: MRI of your brain reveals no acute stroke. Your left side numbness has a great improvement otherwise you has no other neurological deficits. ECHO reveals unremarkable. 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 [facility] neurologist Dr. Mccormack was consulted and recommended you have three months of Aspirin and Plavix then followup with Aspirin. You may followup with neurologist as outpatient. Care Goals: stabilization and improvement of your medical conditions Assessment: discussed with you about the care plan, you understood and agreed. Additional Instructions or Follow Up instructions: You may followup with your PCP in one to two weeks, may followup with neurologist as outpatient. Should your symptoms return or worsen, you may present ER or call 911 for help. No Smoking: If you smoke, Please STOP! Call for help. Follow-up with: Christine Vallejo DO [Primary Care Provider] -
[2020-04-21] MEDS: ACETAMINOPHEN 325 MG TABLET PO PRN (11:12)
[2020-04-21 11:48] VITALS: BP 135/77
--- NOTE | 2020-04-21 12:57 | DISCHARGE SUMMARY ---
Discharge Summary Admit Date: 04/20/20 Discharge Date: 04/21/20 Discharging Provider: Federico bah Primary Care Provider: Rosy Carver Condition at Discharge: Stable Discharge Disposition: 01 Home, Self Care Discharge Facility Name: home - DIAGNOSES Admission Diagnoses: (1) TIA (transient ischemic attack) Patient's numbness on left side is resolved, patient has no other focal neurological deficits. Patient's MRIof the brain, echo, CT of the head are unremarkable. (2) Hypertension (3) Hypothyroidism (4) Depression (5) Hyperlipidemia Discharge Diagnoses with Status of Each Condition: (1) TIA (transient ischemic attack) Patient's numbness on left side is resolved, patient has no other focal neurological deficits. Patient's MRI of the brain, echo, CT of the head are unremarkable. 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 [facility] neurologist Dr. Mccormack was consulted and recommended pt have three months of Aspirin and Plavix then followup with Aspirin. Pt may followup with neurologist as outpatient. (2) Hypertension Stable (3) Hypothyroidism Chronic and stable (4) Depression Stable (5) Hyperlipidemia Stable - HPI History of Present Illness: refer from Dr. Pedraza's HPI on 04/20/2020 This is a pleasant 74-year-old female with a past medical history significant for hypertension, hyperlipidemia, hypothyroidism, depression who presents today complaining of left-sided tongue numbness and left arm numbness that began around 1030am. She states her symptoms began this morning after she sneezed and coughed. She first noted the left side of her tongue was numb and the roof of her mouth became numb as well. Shortly after this the lateral aspect of her left hand became numb in the first 3 digits. She reports no associated weakness, slurred speech, dysphagia. She does report having a mild headache this morning but not as bad as the migraines she has at times. She reports no nausea, vomiting, abdominal pain, chest pain, dyspnea, dizziness, lightheadedness. She feels that the numbness in her left hand is improving slowly but her symptoms still persist. She also still has numbness in the left side of her tongue and the roof of her mouth. She reports no prior history of atrial fibrillation. Denies a history of diabetes. She not had prior strokes or TIAs. She did take a baby aspirin this morning and it is a home medication but she reports she usually does not take it and this past week she did not take a single dose. In the emergency department, a CT of the head was obtained which was unremarkable. CTA of the head showed no significant intracranial abnormalities. 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 Findings were reviewed with neurology at [facility] who recommended medical management only. Neurology recommended dual antiplatelet therapy for 90 days followed by aspirin alone. Given the findings above, the patient will be admitted for further medical management. I did discuss goals of care the patient and she like to be a full code. We did discuss filling out a POLST form and she will consider this on an outpatient basis with her primary care provider. - HOSPITAL COURSE Hospital Course: Patient was admitted for left-sided tongue numbness and left arm numbness. 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 [facility] neurologist Dr. Mccormack was consulted and recommended pt have three months of Aspirin and Plavix then followup with Aspirin. Pt may followup with neurologist as outpatient. MRI of brain and echo were unremarkable. Patient's numbness symptoms was resolved, p atient has no other focal neuro deficit. Patient was discharged to home with Advised of neurologist to be followed-up with - ALLERGIES Allergies/Adverse Reactions: Allergies Allergy/AdvReac Type Severity Reaction Status Date / Time codeine AdvReac Itching Verified 04/20/20 11:28 meperidine HCl * AdvReac Nausea Verified 04/20/20 11:28 [From Demerol] - MEDICATIONS Home Medications: Ambulatory Orders Medication Instructions Recorded Confirmed Aspirin [Aspir-Low] 81 mg PO DAILY 01/20/16 04/20/20 Citalopram Hydrobromide 40 mg PO DAILY 01/20/16 04/20/20 [Citalopram HBr] Hydrochlorothiazide 25 mg PO DAILY 01/20/16 04/20/20 Levothyroxine [Synthroid] 75 mcg PO QDAC 01/20/16 04/20/20 Simvastatin 40 mg PO DAILY 01/20/16 04/20/20 Cyclobenzaprine [Flexeril] 10 mg PO TID PRN #20 tablet 02/27/18 04/20/20 Losartan [Cozaar] 100 mg PO DAILY 02/27/18 04/20/20 Alendronate Sodium 70 mg PO Q7D 04/20/20 04/20/20 Fluticasone [Flonase] 1 spray LLOYD PRN PRN 04/20/20 04/20/20 Clopidogrel [Plavix] 75 mg PO DAILY #30 tablet 04/21/20 - PHYSICAL EXAM AT DISCHARGE General Appearance: positive: No acute distress, Alert. negative: Lethargic Eyes Bilateral: positive: Normal inspection, PERRL, No lid inflammation ENT: positive: ENT inspection nml, Pharynx nml, No signs of dehydration. nega tive: Oral lesions, Dry mucous membranes Neck: positive: Nml inspection, Thyroid nml, No JVD, Trachea midline. negative: Thyromegaly, Stiff neck, Tracheal deviation Respiratory: positive: Chest non-tender, No respiratory distress, Breath sounds nml. negative: Wheezes, Rales, Rhonchi Cardiovascular: positive: Regular rate & rhythm, No murmur, No gallop. negative: Tachycardia, Bradycardia, JVD present, Systolic murmur, Diastolic murmur Peripheral Pulses: positive: 2+ Abdomen: positive: Non-tender, No organomegaly, Nml bowel sounds, No distention. negative: Tenderness, Guarding, Rebound Back: positive: Nml inspection. negative: CVA tenderness (R), CVA tenderness (L) Skin: positive: Color nml, No rash, Warm, Dry. negative: Cyanosis, Diaphoresis, Pallor Extremities: positive: Non-tender, Full ROM, Nml appearance. negative: Calf tenderness, Panda's sign/cords Neurologic/Psychiatric: positive: Oriented x3, Motor nml, Sensation nml, Mood/affect nml. negative: Weakness, Sensory loss, Facial droop, Slurred/abnml speech, Depressed mood/affect - LABS Result Diagrams: 04/21/20 05:58 04/21/20 08:42 - FOLLOW UP Follow Up: MRI of your brain reveals no acute stroke. Your left side numbness has a great improvement otherwise you has no other neurological deficits. ECHO reveals unrem arkable. 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 [facility] neurologist Dr. Mccormack was consulted and recommended you have three months of Aspirin and Plavix then followup with Aspirin. You may followup with neurologist as outpatient. You may followup with your PCP in one to two weeks, may followup with neurologist as outpatient. Should your symptoms return or worsen, you may present ER or call 911 for help. - TIME SPENT Time Spent in Discharge (Minutes): 30
== END 2020-04-21 14:26 | disposition home or self-care (01) ==
LOC: ED 11:19 → MS3 13:33
PROVIDERS: ADMIT Internal Medicine; ATTEND Nurse Practitioner Gerontology
DX: G45.9 Transient cerebral ischemic attack, unspecified (principal); I10 Essential (primary) hypertension; E03.9 Hypothyroidism, unspecified; E78.5 Hyperlipidemia, unspecified; F32.9 Major depressive disorder, single episode, unspecified; Z79.82 Long term (current) use of aspirin
CPT/HCPCS: 36415; 70496; 70498; 70551; 80048; 80053; 80061; 83036; 83690; 84443; 84484; 85025; 93005; 93306; 96372; 99285; A9270; G0378; J1650; J8499; Q9967; 70450; 83721

== ENCOUNTER 2020-07-13 08:17 | Outpatient (CLI) | payer MEDICARE, OTHER ==
[2020-07-13 09:27] VITALS: BP 136/78
--- NOTE | 2020-07-13 09:27 | SLEEP CARE CONSULTATION ---
Information from patient questionnaire entered by Flavia Yousif. I have reviewed and concur with the information entered by Flavia Yousif. This document represents the service I personally performed and the decisions made by me, Peggy Rice ARNP. History of Present Illness Service Date and Time: 07/13/2020 08 Reason for Visit: New patient Chief Complaint: reports: Snoring. denies: Insomnia, Unrefreshed sleep, Excessive daytime sleepiness, Observed pauses in breathing, Fatigue, Frequent awakenings at night Usual bedtime: 2200 Time it takes to fall asleep: 15 minutes Snores at night: Yes Observed to quit breathing while asleep: No Sleeps alone due to snoring: No Number of times waking at night: 2-3 times a night Reasons for waking at night: reports: Pain (rotator cuff injury and surgery, causes pain in night/rolls over and is okay), Bathroom, Other (coughing occasionally from sinus issues). denies: Choking, Snoring, Gasping for air Toss, Turn, or Twitch while sleeping: Yes Recalls having dreams: Yes Usually gets out of bed at: 2127-2195 Feels refreshed in the morning: Yes Morning headache: Yes (2-3 times a week, last all day unless takes something (tylenol /Mucinex)) Sleepy or fatigued during the day: No Ever fallen asleep while driving: No Takes day naps: No Dreams during day naps: No Prior sleep studies: No Additional HPI information: I had the pleasure of seeing KWADWO WADSWORTH today regarding the possibility of her having a sleep disorder. Her current complaints are snoring. She had a TIA in March. She is being evaluated by several doctors due to event and was sent here for evaluation. She has a history of hypertension, arthritis, hypothyroidism, depression and mood disorder. She states her father, a sibling and her son have had TANYA and all been treated with CPAP machine. - Parasomnia Symptoms Ever been unable to move upon waking from sleep: No Walks in sleep: No Talks in sleep: Yes (might) Ever acted out dreams in sleep: No Ever felt weak in the knees when startled or emotional: No Bothered by creepy, crawly, restless sensations in legs: Yes (feet to ankle, skin tingles) Problems with memory or concentration: Yes (concussion 5 yrs ago and TIA; short term memory loss) Subjective Initial Hayden Sleepiness Scale score: 3 Past Medical History Past Medical History: reports: Hypertension, Arthritis, Hypothyroidism, Depression, Mood disorder, Other (TIA). denies: Congestive Heart Failure, Diabetes, Coronary Heart Disease, Arrythmia, Anemia (did when was younger), Anxiety, GERD Social History The patient's occupation is retired. Patient is and lives in [place]. Have you smoked in the past 12 months: No Cigarettes per day (20/pack): 30 (1-2 packs) Years of smokin Quit date: 1971 Smoking Pack Years: 15.0 Alcohol use: No Caffeine use: Yes Caffeine amount and frequency: 1 cup coffee every day Family History Family history of sleep disordered breathing: Yes Family Hx Sleep Apnea: Father: Snoring (son), Sleep apnea - Treated, Sibling: Snoring, Sleep apnea - Treated, Other: Snoring, Sleep apnea - Treated Allergies and Home Medications Drug allergies reviewed: Yes (codiene, Demerol) Home medication list reviewed: Yes Allergy and home medication list: Alendronate 70 mg aspirin 81 mg atorvastatin 40 mg cytalopram 40 mg cyclobenzaprine 10 mg fluticasone 50mcg HCTZ 25 mg Losartan 100 mg Synthroid 75 mcg MTV Refresh (dry eye syndrome), daily Tylenol, prn Review of Systems Cardiovascular: reports: high blood pressure, leg or foot swelling. denies: palpitations, chest pain, irregular heart rate or pulse Respiratory: reports: shortness of breath, wheeze, sputum production, chronic cough Gastrointestinal: reports: diarrhea. denies: heartburn, difficulty swallowing Urinary: reports: incontinence Neurological: reports: headaches, head trauma, gait or balance problems. denies: seizure, speech dysfunction Psychiatric: reports: depression, mood disorder. denies: anxiety, claustrophobia Ear/Nose/Throat: reports: nasal congestion, sinus problems, dry mouth/throat, tonsillectomy, wisdom teeth removed Endocrine: reports: thyroid disease, too hot or cold (*too hot) Musculoskeletal: reports: joint pain, neck pain, back pain, muscle pain or cramping Immunologic: reports: sneezing, allergies to food or environment (seasonal, grass, dust, trees) Physical Exam Blood Pressure: 136/78 Cuff size: regular Heart Rate: 70 O2 Saturation: 97 Height: 5 ft Weight: 152 lb Body Mass Index: 29.7 BMI Classification: Overweight Neck circumference: 14.5 (inches) HEENT: No craniofacial malformation Nostrils: patent to airflow Turbinates: swollen Septum: midline Mouth and throat: narrow oropharynx Soft palate: normal Hard palate: normal Uvula: normal Uvula visualization: 25% Mallampati Class III Tongue: normal in size Tonsils: absent bilaterally Chin and jaw: normal size and position Neck: normal w/o lymphadenopathy or thyromegaly Heart: regular rate and rhythm Lungs: clear bilaterally Impression and Plan 1. Suspected Obstructive Sleep Apnea-Hypopnea Syndrome, as suggested by a history of loud and irregular snoring, morning headache, cognitive impairment. I reviewed with patient that a narrow oropharynx and obesity are common predisposing factors for obstructive sleep apnea-hypopnea syndrome. I recommend proceeding to polysomnography to confirm the diagnosis and to assess severity. If the patient has significant sleep disordered breathing, a manual CPAP titration study will also be performed to find the optimal treatment pressure. I informed the patient of what the sleep studies involve and after some discussion, obtained agreement to proceed. The pathophysiology of obstructive sleep apnea-hypopnea syndrome was discussed with the patient and health risks of cardiovascular and cerebrovascular disease if not treated. AAS brochure for obstructive sleep apnea-hypopnea syndrome given and reviewed. Risks of drowsy driving discussed in detail and patient advised to avoid long distance driving and to tobacco sample puller at the first sign of drowsiness. She does not drink alcohol. Patient agreed to plan. * Schedule polysomnography +- manual CPAP titration study. * Avoid long distance driving or driving when feeling sleepy. * Avoid sedative and muscle relaxant around bedtime. * Attempt to lose weight. * Review instructions provided by trained office staff on how to prepare for the sleep study. * Return for follow-up after sleep study completed. Visit Type: In Office Time Spent with Patient (minutes): 31 Provider Statement: I spent 100% of the Face to Face Visit with the patient with greater than 50% spent counseling the patient and coordination of care.
== END 2020-07-13 08:18 | disposition home or self-care (01) ==
LOC: SC 08:17
PROVIDERS: ATTEND Nurse Practitioner Family
DX: R06.83 Snoring (principal); E66.3 Overweight; Z68.29 Body mass index [BMI] 29.0-29.9, adult; I10 Essential (primary) hypertension; F32.9 Major depressive disorder, single episode, unspecified; R41.89 Other symptoms and signs involving cognitive functions and awareness
CPT/HCPCS: 99204; G0463; 99212

== ENCOUNTER 2020-08-28 08:00 | Outpatient (CLI) | payer MEDICARE, OTHER ==
[2020-08-28 18:19] LABS: BASOPHILS % (AUTO) 0.8 %; EOSINOPHILS # (AUTO) 0.3 10^3/uL (0.0-0.7); EOSINOPHILS % (AUTO) 5.6 %; HGB - HEMOGLOBIN 12.3 g/dL (12.0-16.0); LYMPHOCYTES # (AUTO) 1.7 10^3/uL (1.5-3.5); MEAN CORPUSCULAR HEMOGLOBIN 31.1 pg (27.0-31.0); MEAN CORPUSCULAR VOLUME 97.2 fL (81.0-99.0); MEAN PLATELET VOLUME 9.8 fL (7.9-10.8); MONOCYTES # (AUTO) 0.4 10^3/uL (0.0-1.0); MONOCYTES % (AUTO) 7.4 %; NEUTROPHILS # (AUTO) 2.6 10^3/uL (1.5-6.6); PLT - PLATELET COUNT 300 10^3/uL (130-450); RED BLOOD COUNT 3.95 10^6/uL (4.20-5.40); RED CELL DISTRIBUTION WIDTH 12.6 % (12.0-15.0)
[2020-08-28 18:47] LABS: ALBUMIN 4.4 g/dL (3.2-5.5); ALBUMIN/GLOBULIN RATIO 1.6 (1.0-2.2); ALKALINE PHOSPHATASE 62 IU/L (42-121); ALT ALANINE AMINOTRANSFERASE 21 IU/L (10-60); AST ASPARTATE AMINOTRANSFERASE 25 IU/L (10-42); BILIRUBIN,TOTAL 1.1 mg/dL (0.2-1.0); BUN - BLOOD UREA NITROGEN 12 mg/dL (6-20); CALCIUM 9.7 mg/dL (8.5-10.3); CARBON DIOXIDE - CO2 31 mmol/L (21-32); CHLORIDE 100 mmol/L (101-111); CHOL/HDL RATIO 3.1 (<4.4); CHOLESTEROL 175 mg/dL; CREATININE 0.6 mg/dL (0.4-1.0); GLUCOSE 104 mg/dL (70-100); HDL CHOLESTEROL 57 mg/dL; LDL CHOLESTEROL,CALCULATED 98 mg/dL; LDL/HDL RATIO 1.7 (<4.4); SODIUM 140 mmol/L (135-145); TOTAL PROTEIN 7.1 g/dL (6.7-8.2); VLDL CHOLESTEROL 20 mg/dL
== END 2020-08-28 23:59 | disposition home or self-care (01) ==
LOC: LAB.WCP 08:00
PROVIDERS: ATTEND Family Medicine
DX: I10 Essential (primary) hypertension (principal); E78.5 Hyperlipidemia, unspecified; E03.9 Hypothyroidism, unspecified
CPT/HCPCS: 36415; 80053; 80061; 83721; 84443; 85025

== ENCOUNTER 2020-09-15 19:39 | Outpatient (CLI) | payer MEDICARE, OTHER | END 2020-09-15 19:40 | disposition home or self-care (01) | LOC: SC 19:39 | PROVIDERS: ATTEND Nurse Practitioner Family | DX: G47.33 Obstructive sleep apnea (adult) (pediatric) (principal); G47.61 Periodic limb movement disorder; I10 Essential (primary) hypertension; F32.9 Major depressive disorder, single episode, unspecified | CPT/HCPCS: 95810 ==

== ENCOUNTER 2020-09-23 08:59 | Outpatient (CLI) | payer MEDICARE, OTHER ==
--- NOTE | 2020-09-23 09:28 | SLEEP CARE CONSULTATION ---
Information from patient questionnaire entered by Jacy Sandhu. I have reviewed and concur with the information entered by Jacy Sandhu. This document represents the service I personally performed and the decisions made by , Peggy Rice ARNP. History of Present Illness Service Date and Time: 09/23/2020 08 Initial Bath Sleepiness Scale score: 3 (in 2020) Current Bath Sleepiness Scale score: 0 Additional HPI information: KWADWO WADSWORTH returns for follow up and results of the recently performed polysomnography. I explained the pathophysiology behind obstructive sleep apnea. We then spent quite a bit of time discussing different treatment options. For mild obstructive sleep apnea, surgery and oral appliance are alternatives to nasal CPAP therapy but in moderate or severe cases, nasal CPAP is the most effective and reliable treatment. Because apnea is primarily in supine position, then positional management therapy could be effective. Methods discussed such as positioning with pillows, using a T-shirt with tennis balls in the back, and shown commercial products that have a pillow format on back to prevent supine sleep. I reviewed the impact of weight changes on sleep apnea and strongly recommended losing weight. After some discussion, the patient opted to go with the nasal CPAP therapy. Nasal autoCPAP set at 4-15 cmH20 will be ordered with rationale explained. A manual titration study will be ordered if unable to find optimal pressure with office adjustments. I explained how CPAP machine works with sample devices Respironics Dreamstation and [employer] [id number] and what to expect when using the machine. Using CPAP every night in order to get used to it was emphasized. Patient advised to put CPAP mask on before getting into bed so as not to fall asleep without CPAP. To assist acclimation to CPAP use, it could also be used for a short time during day while reading or watching TV. The patient was instructed to call the CPAP supplier to discuss any mechanical problem that may occur. If the mask given is uncomfortable or is difficult to keep on through the night even with adjustment, contact the CPAP supplier as many will replace with another mask style if notified before 30 days. If snoring or perceives is not getting enough air or too much air from the machine, notify this office. Sleep Study - Results Type of Sleep Study: Polysomnography Prior sleep studies: No Polysomnography/Home Sleep Study results: IMPRESSION: The quality of the study is good. The patient had reduced sleep efficiency due to frequent awakenings after the sleep onset. Despite moderate sleep fragmentation, sleep stage distribution was normal. Respiratory monitoring showed mild obstructive sleep apnea-hypopnea (AHI = 10.9) associated with frequent arousals, oxyhemoglobin desaturation and mild hypoxia (chandni oxygen saturation of 82%). The respiratory events occurred almost exclusively during supine sleep (supine AHI = 16.6; non-supine = 2.72). Snore was moderate to loud in intensity. There was mild periodic leg movement of sleep contributing to the sleep fragmentation. Cardiac rhythm was normal sinus rhythm without significant arrhythmia. No abnormal behavior (parasomnia) observed during the night. Allergies and Home Medications Drug allergies reviewed: Yes (codeine, meperidine) Home medication list reviewed: Yes (no changes) Review of Systems Review of systems same as previous: Yes (no changes) Physical Exam Heart Rate: 81 O2 Saturation: 98 Height: 5 ft Weight: 151 lb Body Mass Index: 29.5 BMI Classification: Overweight Impression and Plan 1. Obstructive Sleep Apnea-Hypopnea Syndrome, mild, with lowest oxygen saturation of 82%. Obviously this is the cause of the patients symptoms of unrefreshed sleep, and excessive daytime sleepiness. Positive pressure therapy could benefit hypertension, depression and cerebrovascular disease. As mentioned above, the patient will be started on nasal autoCPAP therapy with pressure set at 4-15 cmH2O. A manual titration study will be completed if unable to find optimal treatment pressure with office adjustments. Compliance guidelines also reviewed. A copy of compliance guidelines will be given for reference at check out. Because the apnea is more severe supine, I instructed to avoid sleeping supine using pillow positioning until able to start CPAP use. 2. Periodic limb movement, mild, that did not fragment patients sleep. Periodic limb movement of sleep (PLMS) is characterized by episodes of repetitive limb movements that occur during sleep and usually involve the lower limbs. The etiology is unknown but can be associated with restless leg syndrome (RLS), neuropathy, spinal cord diseases, kidney disease, rheumatological disorders, narcolepsy, obstructive sleep apnea, and REM sleep behavior disorder. Other factors that can increase PLMS and/or RLS are heredity and iron deficiency as reflected by a low serum ferritin level below 50 to 75mcg / L. Several medications can precipitate or aggravate PLMS such as selective serotonin re- uptake inhibitor antidepressants, tricyclic antidepressants, lithium, and dopamine receptor antagonists with the exception of bupropion. Caffeine can also aggravate PLMS and should be avoided. Sleep hygiene methods can also improve sleep as well as lifestyle changes such as regular exercise. Patient was advised that no treatment is needed at this time. If symptoms increase, then further evaluation is indicated. * Nasal auto CPAP therapy, pressure at 4-15 cm H2O. * Attempt to lose weight. * Avoid alcohol consumption near bedtime. * Avoid supine sleep until using CPAP. * The patient is again cautioned about driving until sleepiness completely resolves. * Return one month after CPAP obtained. I will assess response to therapy and compliance at that time. Visit Type: In Office Time Spent with Patient (minutes): 21 Provider Statement: I spent 100% of the Face to Face Visit with the patient with greater than 50% spent counseling the patient and coordination of care.
== END 2020-09-23 09:00 | disposition home or self-care (01) ==
LOC: SC 08:59
PROVIDERS: ATTEND Nurse Practitioner Family
DX: G47.33 Obstructive sleep apnea (adult) (pediatric) (principal); G47.61 Periodic limb movement disorder; E66.3 Overweight; Z68.29 Body mass index [BMI] 29.0-29.9, adult
CPT/HCPCS: 99213; G0463; 99212

== ENCOUNTER 2020-11-25 08:26 | Outpatient (CLI) | payer MEDICARE, OTHER ==
--- NOTE | 2020-11-25 09:03 | SLEEP CARE CONSULTATION ---
Information from patient questionnaire entered by Jacy Sandhu. I have reviewed and concur with the information entered by Jacy Sandhu. This document represents the service I personally performed and the decisions made by , Peggy Rice ARNP. History of Present Illness Service Date and Time: 11/25/2020825 Previous diagnosis: Mild, Obstructive Sleep Apnea-Hypopnea Syndrome AHI: 10.9 (in 2019) Reason for follow up: first compliance Equipment type: CPAP [facility] Mask style: Nasal pillows Backup mask available: Yes (other mask) Last cushion change: 1 month Prior sleep studies: Yes Year and Where: 2019 - [facility] Type of Sleep Study: Polysomnography HPI additional information: MONIKA WADSWORTH was diagnosed to have mild, AHI 10.9, obstructive sleep apnea- hypopnea syndrome and returned today for CPAP therapy first compliance follow- up. CPAP Compliance Data - Data Reviewed with Patient Average duration of nightly device use: 8 hr 28 min Compliance rate %: 90 Current pressure setting (cmH2O): 4-15 (8.1 median, 12.5 average, 13.7 maximum) Humidity settin Average residual AHI: 1.7 Central apnea: 0.1 Obstructive apnea: 1.4 Subjective Patient concerns: reports: air blowing in eyes (due to seal on mask, needs new mask), dry mouth, nose, throat (dry mouth occasionally). denies: aerophagia, mask discomfort, mask leak noise, condensation in mask/hose, nasal congestion, epistaxis, other Observed to snore while using device: No (not sure) Current pressure setting perceived as: comfortable On therapy, patient: reports: sleeping better, awakening more refreshed, being more awake and alert during the day, more rested overall. denies: drowsiness while driving Initial [place] Sleepiness Scale score: 3 (in 2020) Current [place] Sleepiness Scale score: 0 Allergies and Home Medications Drug allergies reviewed: Yes (codiene, meperidine) Home medication list reviewed: Yes (no changes) Review of Systems Review of systems same as previous: Yes (no changes) Physical Exam Heart Rate: 83 O2 Saturation: 96 Height: 5 ft Weight: 154 lb Body Mass Index: 30.0 BMI Classification: Obese Impression and Plan 1. Obstructive Sleep Apnea-Hypopnea Syndrome, mild, with good treatment compliance and good apnea control. On CPAP therapy, the patient has better sleep quality and is more rested overall. Monika has had some air blowing into her eyes because her mask is not sealing as well recently. She is waiting for a new shipment of supplies and will change to a new mask that should seal better. I also advised her that she should use some OTC moisturizing eye drops and/or wear an sleeping mask over her eyes to help reduce eye dryness. She also occasionally has some dry mouth. Oral dryness can be reduced by adjusting humidity setting higher or heated hose lower or by adjusting both settings. Printed instructions given on how to change humidity and heated hose settings with rationale explaining why to change. Patient advised that chronic oral dryness can affect dental health. I am going to adjust her APAP pressure to 9-13 cmH2O to reflect the pressures she is using. Patient advised to contact me if pressure change is uncomfortable so that it can be adjusted. Goals for apnea control discussed. Patient's apnea severity and rationale for treatment to reduce apnea, improve sleep quality and reduce cardiovascular and cerebrovascular events was reviewed. I also reviewed the benefit of consistent device use of CPAP for hypertension, cerebrovascular disease, and depression. * Change autoCPAP pressure to 9-13 cmH2O * Notify me if snoring with mask or feeling that the pressure is too much or too little * Attempt to lose weight * Call this office if any problems using CPAP * Return for follow up in 1-2 months, or sooner if concerns arise Counseling Topics: Spare mask, Weight loss health impact Visit Type: In Office Time Spent with Patient (minutes): 21 Provider Statement: I spent 100% of the Face to Face Visit with the patient with greater than 50% spent counseling the patient and coordination of care.
== END 2020-11-25 08:27 | disposition home or self-care (01) ==
LOC: SC 08:26
PROVIDERS: ATTEND Nurse Practitioner Family
DX: G47.33 Obstructive sleep apnea (adult) (pediatric) (principal); E66.9 Obesity, unspecified; Z68.30 Body mass index [BMI] 30.0-30.9, adult
CPT/HCPCS: 99213; G0463; 99212

== ENCOUNTER 2021-01-05 10:42 | Outpatient (CLI) | payer MEDICARE, OTHER ==
--- NOTE | 2021-01-05 11:14 | SLEEP CARE CONSULTATION ---
Information from patient questionnaire entered by Jacy Sandhu. I have reviewed and concur with the information entered by Jacy Sandhu. This document represents the service I personally performed and the decisions made by , Peggy Rice ARNP. History of Present Illness Service Date and Time: 01/05/2021 1042 Previous diagnosis: Mild, Obstructive Sleep Apnea-Hypopnea Syndrome AHI: 10.9 (in 2019) Reason for follow up: other (6 week with pressure change) Equipment type: CPAP Equipment obtained from: [employer] (getting supplies as needed) Mask style: Nasal pillows Backup mask available: Yes (old mask) Last cushion change: last week Prior sleep studies: Yes Year and Where: 2019 - [facility] Type of Sleep Study: Polysomnography HPI additional information: KWADWO WADSWORTH was diagnosed to have mild, AHI 10.9, obstructive sleep apnea- hypopnea syndrome and returned today for CPAP therapy 6 week pressure change follow-up. CPAP Compliance Data - Data Reviewed with Patient Average duration of nightly device use: 8 hr 55 min Compliance rate %: 100 (40 days) Current pressure setting (cmH2O): 8-12 Humidity settin Average residual AHI: 1.6 Subjective Patient concerns: reports: dry mouth, nose, throat, other (headache ?). denies: aerophagia, mask discomfort, air blowing in eyes, mask leak noise, condensation in mask/hose, nasal congestion, epistaxis Observed to snore while using device: No (no sure) Current pressure setting perceived as: comfortable On therapy, patient: reports: sleeping better, awakening more refreshed, being more awake and alert during the day, more rested overall. denies: drowsiness while driving Initial Sears Sleepiness Scale score: 3 (in 2019) Current Sears Sleepiness Scale score: 1 Allergies and Home Medications Home medication list reviewed: Yes (no changes) Review of Systems Review of systems same as previous: Yes (no changes) Physical Exam Heart Rate: 83 O2 Saturation: 96 Height: 5 ft Weight: 156 lb Body Mass Index: 30.4 BMI Classification: Obese Impression and Plan 1. Obstructive Sleep Apnea-Hypopnea Syndrome, mild, with excellent treatment compliance and good apnea control. On CPAP therapy, the patient has better sleep quality and is more rested overall. She still getting some mouth dryness but is has improved since she increased her humidity at the last visit. Oral dryness can be reduced by adjusting humidity setting higher or heated hose lower or by adjusting both settings. Patient advised that chronic oral dryness can affect dental health. In addition, there are oral dryness products that can be used to reduce dryness such as Biotene products, Dry mouth rinse and Xylomelts. Patient to discuss best option with dentist. She voiced understanding. She has been having some headaches but she thinks these are her usual sinus headache at this time of year. She feels she is getting comfortable with the CPAP and has no other concerns today. Patient's apnea severity and rationale for treatment to reduce apnea, improve sleep quality and reduce cardiovascular and cerebrovascular events was reviewed. I also reviewed the benefit of consistent device use of CPAP for hypertension, cerebrovascular disease, and depression. * Continue autoCPAP pressure at 8-12 cmH2O * Notify me if snoring with mask or feeling that the pressure is too much or too little * Attempt to lose weight * Call this office if any problems using CPAP * Return for follow up in 3 months, or sooner if concerns arise Counseling Topics: Spare mask, Weight loss health impact Visit Type: In Office Time Spent with Patient (minutes): 16 Provider Statement: I spent 100% of the Face to Face Visit with the patient with greater than 50% spent counseling the patient and coordination of care.
== END 2021-01-05 10:43 | disposition home or self-care (01) ==
LOC: SC 10:42
PROVIDERS: ATTEND Nurse Practitioner Family
DX: G47.33 Obstructive sleep apnea (adult) (pediatric) (principal); E66.9 Obesity, unspecified; Z68.30 Body mass index [BMI] 30.0-30.9, adult
CPT/HCPCS: 99212; G0463

== ENCOUNTER 2021-01-29 10:01 | Outpatient (CLI) | payer MEDICARE, OTHER ==
[2021-01-29 10:18] LABS: BASOPHILS % (AUTO) 0.7 %; EOSINOPHILS # (AUTO) 0.3 10^3/uL (0.0-0.7); EOSINOPHILS % (AUTO) 5.5 %; HCT - HEMATOCRIT 37.4 % (37.0-47.0); HGB - HEMOGLOBIN 12.4 g/dL (12.0-16.0); LYMPHOCYTES # (AUTO) 1.5 10^3/uL (1.5-3.5); LYMPHOCYTES % (AUTO) 25.4 %; MEAN CORPUSCULAR HEMOGLOBIN 31.4 pg (27.0-31.0); MEAN CORPUSCULAR HGB CONC 33.2 g/dL (32.0-36.0); MEAN CORPUSCULAR VOLUME 94.7 fL (81.0-99.0); MONOCYTES # (AUTO) 0.4 10^3/uL (0.0-1.0); MONOCYTES % (AUTO) 6.7 %; NEUTROPHILS # (AUTO) 3.6 10^3/uL (1.5-6.6); NEUTROPHILS % (AUTO) 61.5 %; PLT - PLATELET COUNT 285 10^3/uL (130-450); RED BLOOD COUNT 3.95 10^6/uL (4.20-5.40); RED CELL DISTRIBUTION WIDTH 12.4 % (12.0-15.0); WHITE BLOOD COUNT 5.8 x10^3/uL (4.8-10.8)
[2021-01-29 10:48] LABS: THYROID STIMULATING HORMONE 0.48 uIU/mL (0.34-5.60)
[2021-01-29 10:58] LABS: ALBUMIN 4.4 g/dL (3.2-5.5); ALBUMIN/GLOBULIN RATIO 1.7 (1.0-2.2); ALKALINE PHOSPHATASE 63 IU/L (42-121); ALT ALANINE AMINOTRANSFERASE 26 IU/L (10-60); AST ASPARTATE AMINOTRANSFERASE 25 IU/L (10-42); BILIRUBIN,TOTAL 1.1 mg/dL (0.2-1.0); BUN - BLOOD UREA NITROGEN 16 mg/dL (6-20); CALCIUM 9.7 mg/dL (8.5-10.3); CARBON DIOXIDE - CO2 29 mmol/L (21-32); CHLORIDE 101 mmol/L (101-111); CHOL/HDL RATIO 3.1 (<4.4); CHOLESTEROL 172 mg/dL; CREATININE 0.6 mg/dL (0.4-1.0); GFR - MDRD 97 (>89); GLUCOSE 107 mg/dL (70-100); HDL CHOLESTEROL 55 mg/dL; LDL CHOLESTEROL,CALCULATED 99 mg/dL; LDL/HDL RATIO 1.8 (<4.4); POTASSIUM 3.7 mmol/L (3.5-5.0); SODIUM 140 mmol/L (135-145); TRIGLYCERIDES 91 mg/dL; VLDL CHOLESTEROL 18 mg/dL
== END 2021-01-29 10:02 | disposition home or self-care (01) ==
LOC: LAB 10:01
PROVIDERS: ATTEND Family Medicine
DX: I10 Essential (primary) hypertension (principal); E03.9 Hypothyroidism, unspecified
CPT/HCPCS: 36415; 80053; 80061; 83721; 84443; 85025

== ENCOUNTER 2021-04-06 09:48 | Outpatient (CLI) | payer MEDICARE, OTHER ==
--- NOTE | 2021-04-06 10:17 | SLEEP CARE CONSULTATION ---
Information from patient questionnaire entered by Jacy Sandhu. I have reviewed and concur with the information entered by Jacy Sandhu. This document represents the service I personally performed and the decisions made by , Peggy Rice ARNP. History of Present Illness Service Date and Time: 04/06/2021 0948 Previous diagnosis: Mild, Obstructive Sleep Apnea-Hypopnea Syndrome AHI: 10.9 (in 2019) Reason for follow up: three month Equipment type: CPAP Equipment obtained from: [employer] (getting supplies as needed) Mask style: Nasal pillows Backup mask available: Yes (old mask) Last cushion change: 1 week ago Prior sleep studies: Yes Year and Where: 2019 - [facility] Type of Sleep Study: Polysomnography HPI additional information: KWADWO WADSWORTH was diagnosed to have mild, AHI 10.9, obstructive sleep apnea- hypopnea syndrome and returned today for CPAP therapy three month follow-up. CPAP Compliance Data - Data Reviewed with Patient Average duration of nightly device use: 8 hr 20 min Compliance rate %: 96 (90 days) Current pressure setting (cmH2O): 8-12 Humidity settin Average residual AHI: 1.6 Subjective Patient concerns: reports: dry mouth, nose, throat (dry mouth). denies: aerophagia, mask discomfort, air blowing in eyes, mask leak noise, condensation in mask/hose, nasal congestion, epistaxis, other Observed to snore while using device: No Current pressure setting perceived as: comfortable On therapy, patient: reports: sleeping better, awakening more refreshed, being more awake and alert during the day, more rested overall. denies: drowsiness while driving Initial Vantage Sleepiness Scale score: 3 (in 2019) Current Vantage Sleepiness Scale score: 2 Allergies and Home Medications Home medication list reviewed: Yes (no changes) Review of Systems Review of systems same as previous: Yes (no changes) Physical Exam Heart Rate: 83 O2 Saturation: 98 Height: 5 ft Weight: 156 lb Body Mass Index: 30.4 BMI Classification: Obese Impression and Plan 1. Obstructive Sleep Apnea-Hypopnea Syndrome, mild, with good treatment compliance and good apnea control. On CPAP therapy, the patient has better sleep quality and is more rested overall. She has been getting a little bit of a dry mouth. She states her mouth is open little at times and she will wake up with her tongue stuck to the roof of her mouth. I discussed with her using a chinstrap and increasing her humidity setting to help with this dry mouth. Oral dryness can be reduced by adjusting humidity setting higher or heated hose lower or by adjusting both settings. Verbal instructions given on how to change humidity and heated hose settings with rationale explaining why to change. She voiced understanding and agreement with this plan of care. Patient's apnea severity and rationale for treatment to reduce apnea, improve sleep quality and reduce cardiovascular and cerebrovascular events was reviewed. I also reviewed the benefit of consistent device use of CPAP for hypertension, cerebrovascular disease, and depression. * Continue auto CPAP pressure at 8-12 cmH2O * Try using a chin strap * Notify me if snoring with mask or feeling that the pressure is too much or too little * Attempt to lose weight * Call this office if any problems using CPAP * Return for follow up in 6 months, or sooner if concerns arise Counseling Topics: Spare mask, Weight loss health impact Visit Type: In Office Time Spent with Patient (minutes): 19 Provider Statement: I spent 100% of the Face to Face Visit with the patient with greater than 50% spent counseling the patient and coordination of care.
== END 2021-04-06 09:49 | disposition home or self-care (01) ==
LOC: SC 09:48
PROVIDERS: ATTEND Nurse Practitioner Family
DX: G47.33 Obstructive sleep apnea (adult) (pediatric) (principal); E66.9 Obesity, unspecified; Z68.30 Body mass index [BMI] 30.0-30.9, adult
CPT/HCPCS: 99212; G0463

== ENCOUNTER 2021-06-21 12:26 | Emergency (ER) | payer MEDICARE, OTHER ==
[2021-06-21 12:50] VITALS: BP 152/77
--- NOTE | 2021-06-21 13:06 | ED Physician Documentation ---
PD HPI ABD PAIN - Stated complaint Stated Complaint: RIGHT SIDE PX - Chief complaint Chief Complaint: Abd Pain - History obtained from History obtained from: Patient - Additional information Additional information: Diagnosed with a nonobstructing 7 mm right calculus in 2018. There was no specific follow-up. She is had right flank pain now for 2 weeks which at times has been severe over the last 5 days associated with intermittent mild nausea. She declines pain medication on initial evaluation. She has no urinary complaints. Review of Systems Ten Systems: 10 systems reviewed and negative Constitutional: denies: Fever, Chills Respiratory: denies: Dyspnea, Cough GI: reports: Nausea. 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 - Present Medications Home Medications: Ambulatory Orders Medication Instructions Recorded Confirmed Aspirin [Aspir-Low] 81 mg PO DAILY 01/20/16 04/20/20 Citalopram Hydrobromide 40 mg PO DAILY 01/20/16 04/20/20 [Citalopram HBr] Levothyroxine [Synthroid] 75 mcg PO QDAC 01/20/16 04/20/20 Simvastatin 40 mg PO DAILY 01/20/16 04/20/20 hydroCHLOROthiazide 25 mg PO DAILY 01/20/16 04/20/20 [Hydrochlorothiazide] Cyclobenzaprine [Flexeril] 10 mg PO TID PRN #20 tablet 02/27/18 04/20/20 Losartan [Cozaar] 100 mg PO DAILY 02/27/18 04/20/20 Alendronate Sodium 70 mg PO Q7D 04/20/20 04/20/20 Fluticasone [Flonase] 1 spray LLOYD PRN PRN 04/20/20 04/20/20 Clopidogrel [Plavix] 75 mg PO DAILY #30 tablet 04/21/20 Ciprofloxacin HCl [Cipro] 500 mg PO BID #20 tablet 06/21/21 HYDROcod/ACETAM 5/325 [[place] 5/325] 1 - 2 tab PO Q6H PRN #10 tablet 06/21/21 - Allergies Allergies/Adverse Reactions: Allergies Allergy/AdvReac Type Severity Reaction Status Date / Time codeine AdvReac Itching Verified 06/21/21 12:50 meperidine HCl * AdvReac Nausea Verified 06/21/21 12:50 [From Demerol] - Social History Does the pt smoke?: No Smoking Status: Former smoker Does the pt drink ETOH?: No - Immunizations Immunizations are current?: Yes - POLST Patient has POLST: No PD ED PE NORMAL - Vitals Vital signs reviewed: Yes - General General: Alert and oriented X 3, No acute distress - HEENT HEENT: PERRL, EOMI - Neck Neck: Supple, no meningeal sign, No bony TTP - Cardiac Cardiac: RRR, No murmur - Respiratory Respiratory: No respiratory distress, Clear bilaterally - Abdomen Abdomen: Normal bowel sounds, Soft, Non tender - Back Back: Other (Mild right flank tenderness) - Derm Derm: Normal color, Warm and dry - Extremities Extremities: No edema, No calf tenderness / cord - Neuro Neuro: Alert and oriented X 3, Normal speech Results - Vitals Vitals: Vital Signs - 24 hr 06/21/21 12:48 Temperature 36.4 C L Heart Rate 88 Respiratory 16 Rate Blood Pressure 152/77 H O2 Saturation 96 Oxygen O2 Source Room air - Labs Labs: Laboratory Tests 06/21/21 06/21/21 06/21/21 13:02 13:02 13:32 WBC 6.1 RBC 3.98 L Hgb 12.6 Hct 37.2 MCV 93.5 MCH 31.7 H MCHC 33.9 RDW 12.6 Plt Count 276 MPV 9.2 Neut # (Auto) 3.5 Lymph # (Auto) 1.7 [place] # (Auto) 0.4 Eos # (Auto) 0.4 Baso # (Auto) 0.1 Absolute Nucleated RBC 0.00 Nucleated RBC % 0.0 Sodium 139 Potassium 3.3 L Chloride 99 L Carbon Dioxide 30 Anion Gap 10.0 BUN 10 Creatinine 0.5 Estimated GFR (MDRD) 119 Glucose 109 H Calcium 9.9 Total Bilirubin 1.1 H AST 27 ALT 29 Alkaline Phosphatase 78 Total Protein 7.0 Albumin 4.3 Globulin 2.7 Albumin/Globulin Ratio 1.6 Lipase 32 Urine Color ORANGE Urine Clarity CLEAR Urine pH 5.0 Ur Specific [place] 1.020 Urine Protein TRACE Urine Glucose (UA) 100 H Urine Ketones NEGATIVE Urine Occult Blood NEGATIVE Urine Nitrite POSITIVE H Urine Bilirubin NEGATIVE Urine Urobilinogen 2 H Ur Leukocyte Esterase NEGATIVE Urine RBC 0-5 Urine WBC 0-3 Ur Squamous Epith Cells FEW Squamous Urine Bacteria Rare Ur Microscopic Review INDICATED Urine Culture Comments INDICATED - Rads (name of study) Ct Abd/p Radiology: EMP read contemporaneously (Really no change in the position or size of collecting stone of 7 mm seen previously 3 years ago, no obstruction. There is a calcification near the ureter but not in the ureter on the right, also without change.) PD MEDICAL DECISION MAKING - ED course ED course: 76-year-old woman presents with acute flank pain, she does have tenderness of the right CVA on exam. She is not septic. No white count. Will start antibiotics for pyelonephritis. I do not think the kidney stone at this point is causative given the location and lack of obstruction. Departure - Departure Disposition: 01 Home, Self Care Clinical Impression: Pyelonephritis Condition: Good Record reviewed to determine appropriate education?: Yes Instructions: Pyelonephritis Dc Prescriptions: Ciprofloxacin HCl [Cipro] 500 mg PO BID #20 tablet HYDROcod/ACETAM 5/325 [[place] 5/325] 1 - 2 tab PO Q6H PRN #10 tablet PRN Reason: Pain Comments: As discussed, the kidney stone on the right really has not changed or moved in the last 3 years. And I believe the source of your pain today is actually a kidney infection. There is no evidence that the kidney stone is obstructing the kidney so urgent urology follow-up is not necessary, that said I encourage you to talk with us about this with Dr. Vallejo. Return for new or worsening symptoms. We will culture your urine, the results should be done in 48-72 hours. If an antibiotic change is necessary we will call you. Return if worse in the meantime, especially if you develop increasing flank pain, fevers, or cannot keep down the medication. I am prescribing a short course of narcotic pain medication for you. These are potentially dangerous and addictive medications that should be used carefully. These medications may constipate you. Take an [id number] stool softener (docusate) twice daily with plenty of water while taking these medications. If you go 24 hours without a bowel movement, take [id number] miralax, per package instructions. Do not drink or drive while taking these medications. If you received narcotic or sedating medications while in the emergency department, do not drive for 24 hours. Store this medication in a safe, secure place and out of reach of children. It is a violation of federal law to give or sell this medication to another person or to use in a manner other than prescribed. The ED will not refill narcotic prescriptions, including prescriptions lost or stolen. To dispose of unwanted medications: 1. [facility] at [address] in [place] has a medication drop box. They accept prescription medications (in pill form) Monday through Monday 9:00 a.m. to 5:00 p.m. 2. The [facility] [employer] accepts prescription medications (in pill form only) for disposal year round. Call for more information. 3. Contact the [facility] for the next [facility] sponsored prescription drug collection event. , [phone], or [phone]; Note that many narcotic pain relievers also contain Tylenol/acetaminophen. Please ensure that your total dose of acetaminophen from all sources does not exceed 3 g (3000 mg) per day.
[2021-06-21 13:09] LABS: BASOPHILS # (AUTO) 0.1 10^3/uL (0.0-0.1); EOSINOPHILS # (AUTO) 0.4 10^3/uL (0.0-0.7); EOSINOPHILS % (AUTO) 6.9 %; HCT - HEMATOCRIT 37.2 % (37.0-47.0); HGB - HEMOGLOBIN 12.6 g/dL (12.0-16.0); LYMPHOCYTES # (AUTO) 1.7 10^3/uL (1.5-3.5); LYMPHOCYTES % (AUTO) 28.3 %; MEAN CORPUSCULAR HEMOGLOBIN 31.7 pg (27.0-31.0); MEAN CORPUSCULAR HGB CONC 33.9 g/dL (32.0-36.0); MEAN CORPUSCULAR VOLUME 93.5 fL (81.0-99.0); MEAN PLATELET VOLUME 9.2 fL (7.9-10.8); MONOCYTES # (AUTO) 0.4 10^3/uL (0.0-1.0); MONOCYTES % (AUTO) 6.4 %; NEUTROPHILS # (AUTO) 3.5 10^3/uL (1.5-6.6); NEUTROPHILS % (AUTO) 57.1 %; PLT - PLATELET COUNT 276 10^3/uL (130-450); RED BLOOD COUNT 3.98 10^6/uL (4.20-5.40); RED CELL DISTRIBUTION WIDTH 12.6 % (12.0-15.0); WHITE BLOOD COUNT 6.1 x10^3/uL (4.8-10.8)
[2021-06-21 13:20] LABS: ALBUMIN 4.3 g/dL (3.2-5.5); ALBUMIN/GLOBULIN RATIO 1.6 (1.0-2.2); BILIRUBIN,TOTAL 1.1 mg/dL (0.2-1.0); CALCIUM 9.9 mg/dL (8.5-10.3); CREATININE 0.5 mg/dL (0.4-1.0); POTASSIUM 3.3 mmol/L (3.5-5.0)
--- NOTE | 2021-06-21 13:44 | CT Report ---
PROCEDURE: Abdomen/Pelvis WO INDICATIONS: R flank pain TECHNIQUE: Noncontrast 5 mm thick sections acquired from the diaphragms to the symphysis. 5 mm coronal and sagi ttal reformats were then performed. For radiation dose reduction, the following was used: automated exposure control, adjustment of mA and/or kV according to patient size. COMPARISON: 11/22/2017 comparison abdomen/pelvis CT.. FINDINGS: Image quality: Excellent. ABDOMEN: Lung bases: Lung bases are clear. Heart size is normal. Solid organs: Liver and spleen are normal in size. Gallbladder appears normal Pancreas is normal i n contours. No adrenal nodules. Kidneys are normal in size, without hydronephrosis. At the lower th ird collecting system there is a 7 x 7 mm calculus, previously present in 2018 measuring 7 x 7 mm, wi thout associated hydronephrosis. The collecting system of both kidneys is free of hydronephrosis, and adjacent to the proximal right ureter is a rounded calcification that measures up to 8 mm but this a ppears external to the ureter because there is absence of hydroureter and hydronephrosis more superio rly. Peritoneum and bowel: Unenhanced bowel loops demonstrate normal wall thickness and caliber. No free fluid or air. Nodes and vessels: No retroperitoneal or mesenteric adenopathy by size criteria. Aorta and inferior vena cava are normal in caliber. Miscellaneous: No ventral hernias. PELVIS: Genitourinary: Bladder wall thickness is normal. Miscellaneous: No inguinal hernias or adenopathy. Bones: No suspicious bony lesions. No vertebral body compression fractures. IMPRESSION: Within the collecting system of the right kidney, lower third, there is a nonobstructive calculus vince t appears slightly larger than on the comparison study from October 2017. Pain on the right related t o this calculus is a likely etiology for current right-sided flank pain. More inferiorly along the course of the right ureter there is a 8 mm calcification but not associated with hydronephrosis or hydroureter and virtually identical in appearance to a calcification in that area in 2018. This likely is a retroperitoneal rounded calcification rather than ureteral calculus. A dditionally, no edema involving the adjacent kidney and ureter superiorly on the right found. Reviewed by: Kevin Ramirez MD on 06/21/2021 1:43 PM PDT Approved by: Kevin Ramirez MD on 06/21/2021 1:43 PM PDT Station ID: [id number]
[2021-06-21 14:25] LABS: BILIRUBIN,URINE NEGATIVE (NEGATIVE); GLUCOSE, URINE (UA) 100 mg/dL (NEGATIVE); KETONES,URINE (UA) NEGATIVE (NEGATIVE); LEUKOCYTE ESTERASE, URINE NEGATIVE (NEGATIVE); NITRITE,URINE POSITIVE (NEGATIVE); OCCULT BLOOD,URINE NEGATIVE (NEGATIVE); PROTEIN,URINE TRACE mg/dL (NEGATIVE); UROBILINOGEN,URINE 2 E.U./dL (NORMAL)
[2021-06-21 14:27] LABS: CLARITY,URINE CLEAR (CLEAR)
[2021-06-21 14:32] LABS: BACTERIA,URINE Rare /HPF (None Seen); RBC,URINE 0-5 /HPF (0-5); SQUAMOUS EPITHELIAL CELL,UR FEW Squamous (<= Few); WBC,URINE 0-3 /HPF (0-5)
[2021-06-21] MEDS ORDERED: CIPROFLOXACIN 250 MG TABLET PO STA (14:33)
== END 2021-06-21 14:44 | disposition home or self-care (01) ==
LOC: ED 12:26
DX: N12 Tubulo-interstitial nephritis, not specified as acute or chronic (principal); I10 Essential (primary) hypertension; Z87.891 Personal history of nicotine dependence
CPT/HCPCS: 36415; 74176; 80053; 81001; 83690; 85025; 87086; 99284; A9270; 81003

== ENCOUNTER 2021-11-02 09:53 | Outpatient (CLI) | payer MEDICARE, OTHER ==
--- NOTE | 2021-11-02 17:07 | DEXA Report ---
PROCEDURE: Dexa Spine and/or Hip INDICATIONS: OSTEOPENIA TECHNIQUE: Dual energy x-ray absorptiometry (DXA) was performed on a [employer] System. Regions measur ed are the AP Spine, femoral neck, and if needed forearm. COMPARISON: None. FINDINGS: Lumbar Spine: Bone Mineral Density 0.942 g/cm/cm,T score -2.0, osteopenia Left Hip: Bone Mineral Density 1.038 g/cm/cm,T score 0.2, normal Left Femoral Neck: Bone Mineral Density 0.839 g/cm/cm, T score -1.4, osteopenia (T score greater or equal to -1.0: NORMAL) (T score from -1.1 to -2.4: OSTEOPENIA) (T score less than or equal to -2.5 to: OSTEOPOROSIS) Impression: Osteopenia. Patients with diagnosis of osteoporosis or osteopenia should have regular bone mineral density assess ment. For those eligible for Medicare, routine testing is allowed once every 2 years. Testing frequ ency can be increased for patients who have rapidly progressing disease or for those who are receivin g medical therapy to restore bone mass. Reviewed by: Isabel Servin MD, PhD on 11/02/2021 5:06 PM PST Approved by: Isabel Servin MD, PhD on 11/02/2021 5:06 PM PST Station ID: [id number]
== END 2021-11-02 09:54 | disposition home or self-care (01) ==
LOC: DI 09:53
PROVIDERS: ATTEND Family Medicine
DX: M85.89 Other specified disorders of bone density and structure, multiple sites (principal)

== ENCOUNTER 2021-11-12 18:43 | Emergency (ER) | payer MEDICARE, OTHER ==
--- NOTE | 2021-11-12 19:43 | ED Physician Documentation ---
History of Present Illness - Stated complaint Stated Complaint: LEFT SIDE TONGUE NUMB - Chief complaint Chief Complaint: Heent - History obtained from History obtained from: Patient - Additonal information Additional information: 76-year-old woman with past medical history of migraines, TIA (2-3 years ago with transient hand and jaw tingling, resolved), high blood pressure, no history of CVA, presents with Left-sided tongue tingling upon waking from a nap today. Patient endorses no other symptoms aside from some lower back pain earlier in the day that improved with Tylenol. 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 - Present Medications Home Medications: Ambulatory Orders Medication Instructions Recorded Confirmed Aspirin [Aspir-Low] 81 mg PO DAILY 01/20/16 04/20/20 Citalopram Hydrobromide 40 mg PO DAILY 01/20/16 04/20/20 [Citalopram HBr] Levothyroxine [Synthroid] 75 mcg PO QDAC 01/20/16 04/20/20 Simvastatin 40 mg PO DAILY 01/20/16 04/20/20 hydroCHLOROthiazide 25 mg PO DAILY 01/20/16 04/20/20 [Hydrochlorothiazide] Cyclobenzaprine [Flexeril] 10 mg PO TID PRN #20 tablet 02/27/18 04/20/20 Losartan [Cozaar] 100 mg PO DAILY 02/27/18 04/20/20 Alendronate Sodium 70 mg PO Q7D 04/20/20 04/20/20 Fluticasone [Flonase] 1 spray LLOYD PRN PRN 04/20/20 04/20/20 Clopidogrel [Plavix] 75 mg PO DAILY #30 tablet 04/21/20 Ciprofloxacin HCl [Cipro] 500 mg PO BID #20 tablet 06/21/21 HYDROcod/ACETAM 5/325 [[place] 5/325] 1 - 2 tab PO Q6H PRN #10 tablet 06/21/21 - Allergies Allergies/Adverse Reactions: Allergies Allergy/AdvReac Type Severity Reaction Status Date / Time codeine AdvReac Itching Verified 11/12/21 18:53 meperidine HCl * AdvReac Nausea Verified 11/12/21 18:53 [From Demerol] - Social History Does the pt smoke?: No Smoking Status: Former smoker Does the pt drink ETOH?: No - Immunizations Immunizations are current?: Yes - POLST Patient has POLST: No PD ED PE NORMAL - Vitals Vital signs reviewed: Yes - General General: Alert and oriented X 3, No acute distress, Well developed/nourished - HEENT HEENT: Atraumatic, PERRL, EOMI - Neck Neck: Supple, no meningeal sign - Cardiac Cardiac: RRR - Respiratory Respiratory: No respiratory distress, Clear bilaterally - Abdomen Abdomen: Non tender, Non distended - Back Back: No CVA TTP - Derm Derm: Normal color, Warm and dry - Extremities Extremities: No deformity - Neuro 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 normal strength and gait) Results - Vitals Vitals: Vital Signs - 24 hr 11/12/21 18:46 Temperature 35.9 C L Heart Rate 92 Respiratory 16 Rate Blood Pressure 181/70 H O2 Saturation 96 Oxygen O2 Source Room air PD MEDICAL DECISION MAKING - ED course ED course: 76-year-old woman with history of TIA presents with tongue tingling but without any other neurological deficits. Her tongue sensation is intact and she has full range of motion of the tongue and thorough neuro exam was unremarkable. Strict return precautions discussed with the patient. Plan to follow-up with Dr. Vallejo. Departure - Departure Disposition: 01 Home, Self Care Clinical Impression: Tongue abnormality, Tingling Condition: Good Instructions: ED Screening Exam Medical Nonurgent Comments: You were seen in the ED for evaluation of tongue tingling. Your neurological exam uncovered no problems. Please follow up with your primary doctor to have your blood pressure rechecked and for follow up after your ED visit. return if you have new or worsening symptoms or other concerns.
[2021-11-12 19:52] VITALS: BP 146/74
== END 2021-11-12 19:51 | disposition home or self-care (01) ==
LOC: ED 18:43
DX: K14.8 Other diseases of tongue (principal); I10 Essential (primary) hypertension; Z87.891 Personal history of nicotine dependence
CPT/HCPCS: 99281; 99282

== ENCOUNTER 2021-11-29 08:24 | Outpatient (CLI) | payer MEDICARE, OTHER ==
[2021-11-29 09:01] LABS: ALBUMIN 4.2 g/dL (3.2-5.5); ALBUMIN/GLOBULIN RATIO 1.6 (1.0-2.2); BILIRUBIN,TOTAL 1.3 mg/dL (0.2-1.0); CALCIUM 9.9 mg/dL (8.5-10.3); CREATININE 0.5 mg/dL (0.4-1.0); TOTAL PROTEIN 6.9 g/dL (6.7-8.2)
[2021-11-29] MEDS: IOVERSOL 320 100 ML VIAL IVP ONE (09:49)
--- NOTE | 2021-11-29 11:35 | CT Report ---
PROCEDURE: ANGIO HEAD W/WO INDICATIONS: BASILAR ARTERY OCCLUSION, TIA CONTRAST: IV CONTRAST: Optiray 320 ml: 80 PO CONTRAST: *NO PO CONTRAST TECHNIQUE: Precontrast 4.5 mm thick angled axial sections acquired from the foramen magnum to the vertex. Afte r the administration of intravenous contrast, 1 mm thick sections acquired through the [place] of [place] is. Postcontrast 4.5 mm thick sections then re-acquired from the foramen magnum to the vertex. 3-di mensional conjgqp-vncrjirwd-mqzmjvlgru (MIP) and/or volume rendering reformats were acquired of the c entral intracranial vasculature. For radiation dose reduction, the following was used: automated ex posure control, adjustment of mA and/or kV according to patient size. COMPARISON: 04/20/[address], CTA head and neck angiogram, and brain MRI. FINDINGS: Image quality: Excellent. Anterior circulation: Intracranial internal carotid arteries are normal in size and flow. Note is m kamari of a diminutive left A1 segment, with a correspondingly robust right A1 segment. This is consider ed to be a developmental variant of no clinical consequence. The flow within the paired anterior cer ebral arteries is otherwise normal and symmetric. The flow within the middle cerebral arteries is no rmal and symmetric. The anterior communicating artery is seen. No aneurysms are seen. Posterior circulation: Bilateral type origins of the posterior cerebral arteries can be seen. Portions of the mid basilar artery are not well seen, with only faintly seen connections between th e anterior circulation from superiorly in the posterior segment correlation from inferiorly. The appe arance is similar to the 2019 examination. No aneurysms are seen. CSF spaces: Ventricles are normal in size and shape. Basal cisterns are patent. No extra-axial flu id collections. Brain: No midline shift. No intracranial bleeds or masses. Harper-white matter interface appears int act. Skull and face: Calvarium and facial bones appear intact, without suspicious lesions. Sinuses: Visualized sinuses and mastoids are clear. IMPRESSION: Portions of the mid basilar artery are not well seen, with only faintly seen connections between the anterior circulation from superiorly and inferior circulation from inferiorly. 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 The appearance is similar to 2019. Reviewed by: Wilmer Hodgson MD on 11/29/2021 10:33 AM [place] Approved by: Wilmer Hodgson MD on 11/29/2021 10:33 AM [facility] Station ID: [id number]
== END 2021-11-29 08:25 | disposition home or self-care (01) ==
LOC: LAB 08:24
PROVIDERS: ATTEND Nurse Practitioner
DX: G45.9 Transient cerebral ischemic attack, unspecified (principal)
CPT/HCPCS: 36415; 70496; 80053; Q9967

== ENCOUNTER 2021-12-10 10:07 | Outpatient (CLI) | payer MEDICARE, OTHER ==
[2021-12-10 14:38] LABS: BASOPHILS % (AUTO) 0.6 %; EOSINOPHILS # (AUTO) 0.3 10^3/uL (0.0-0.7); EOSINOPHILS % (AUTO) 4.7 %; HCT - HEMATOCRIT 36.8 % (37.0-47.0); HGB - HEMOGLOBIN 12.1 g/dL (12.0-16.0); LYMPHOCYTES # (AUTO) 1.4 10^3/uL (1.5-3.5); LYMPHOCYTES % (AUTO) 22.2 %; MEAN CORPUSCULAR HEMOGLOBIN 31.3 pg (27.0-31.0); MEAN CORPUSCULAR HGB CONC 32.9 g/dL (32.0-36.0); MEAN CORPUSCULAR VOLUME 95.1 fL (81.0-99.0); MEAN PLATELET VOLUME 9.9 fL (7.9-10.8); MONOCYTES # (AUTO) 0.4 10^3/uL (0.0-1.0); MONOCYTES % (AUTO) 6.8 %; NEUTROPHILS % (AUTO) 65.4 %; PLT - PLATELET COUNT 266 10^3/uL (130-450); RED BLOOD COUNT 3.87 10^6/uL (4.20-5.40); RED CELL DISTRIBUTION WIDTH 13.1 % (12.0-15.0); WHITE BLOOD COUNT 6.2 x10^3/uL (4.8-10.8)
[2021-12-10 15:08] LABS: ALBUMIN 4.1 g/dL (3.2-5.5); ALBUMIN/GLOBULIN RATIO 1.5 (1.0-2.2); ALKALINE PHOSPHATASE 49 IU/L (42-121); ALT ALANINE AMINOTRANSFERASE 26 IU/L (10-60); AST ASPARTATE AMINOTRANSFERASE 27 IU/L (10-42); BILIRUBIN,TOTAL 0.9 mg/dL (0.2-1.0); BUN - BLOOD UREA NITROGEN 15 mg/dL (6-20); CALCIUM 9.4 mg/dL (8.5-10.3); CARBON DIOXIDE - CO2 29 mmol/L (21-32); CHLORIDE 100 mmol/L (101-111); CHOL/HDL RATIO 2.8 (<4.4); CHOLESTEROL 160 mg/dL; CREATININE 0.6 mg/dL (0.4-1.0); GFR - MDRD 97 (>89); GLUCOSE 100 mg/dL (70-100); HDL CHOLESTEROL 58 mg/dL; LDL CHOLESTEROL,CALCULATED 88 mg/dL; LDL/HDL RATIO 1.5 (<4.4); POTASSIUM 3.6 mmol/L (3.5-5.0); SODIUM 138 mmol/L (135-145); TOTAL PROTEIN 6.8 g/dL (6.7-8.2); TRIGLYCERIDES 69 mg/dL; VLDL CHOLESTEROL 14 mg/dL
== END 2021-12-10 10:08 | disposition home or self-care (01) ==
LOC: LAB.N 10:07
PROVIDERS: ATTEND Nurse Practitioner
DX: G45.9 Transient cerebral ischemic attack, unspecified (principal)
CPT/HCPCS: 36415; 80053; 80061; 83721; 85025

== ENCOUNTER 2021-12-14 10:54 | Outpatient (CLI) | payer MEDICARE, OTHER ==
--- NOTE | 2021-12-15 08:02 | Mammography Report ---
BILATERAL DIGITAL SCREENING MAMMOGRAM 3D/2D: 12/14/2021 CLINICAL: Routine screening. Comparison is made to exams dated: 12/06/2017 mammogram, 10/14/2016 mammogram, 11/20/2015 mammogram, ultrasound, 10/21/2014 mammogram, and 10/07/2014 mammogram - [facility]. T here are scattered fibroglandular elements in both breasts. There are new grouped dystrophic calcifications in the right breast at 12 o'clock posterior depth. No other significant masses, calcifications, or other findings are seen in either breast. IMPRESSION: INCOMPLETE: NEEDS ADDITIONAL IMAGING EVALUATION The new grouped dystrophic calcifications in the right breast are indeterminate. Additional views wi th possible ultrasound are recommended. This exam was interpreted at Station ID: [id number]. NOTE: For mammograms, a report in lay terms will be sent to the patient. Approximately 15% of breast malignancies will not be visualized mammographically. In the management of a palpable breast mass, a negative mammogram must not discourage biopsy of a clinically suspicious lesion. Electronically Signed By: Hazel parsons/:12/14/2021 12:19:25 ACR BI-RADS Category 0: Incomplete 3340F PARENCHYMAL PATTERN: (A) - The breast(s) demonstrate(s) scattered fibroglandular densities. BI-RADS CATEGORY: (0) - 0 Mammo and US [id number] Immediate follow-up LATERALITY: (B)
== END 2021-12-14 10:55 | disposition home or self-care (01) ==
LOC: DI.N 10:54
DX: Z12.31 Encounter for screening mammogram for malignant neoplasm of breast (principal); R92.8 Other abnormal and inconclusive findings on diagnostic imaging of breast

== ENCOUNTER 2022-07-05 09:16 | Outpatient (CLI) | payer MEDICARE, OTHER ==
[2022-07-05 09:34] LABS: BASOPHILS # (AUTO) 0.1 10^3/uL (0.0-0.1); EOSINOPHILS # (AUTO) 0.3 10^3/uL (0.0-0.7); EOSINOPHILS % (AUTO) 6.1 %; HCT - HEMATOCRIT 36.2 % (37.0-47.0); HGB - HEMOGLOBIN 12.2 g/dL (12.0-16.0); LYMPHOCYTES # (AUTO) 1.2 10^3/uL (1.5-3.5); LYMPHOCYTES % (AUTO) 24.2 %; MEAN CORPUSCULAR HEMOGLOBIN 31.5 pg (27.0-31.0); MEAN CORPUSCULAR HGB CONC 33.7 g/dL (32.0-36.0); MEAN CORPUSCULAR VOLUME 93.5 fL (81.0-99.0); MONOCYTES # (AUTO) 0.5 10^3/uL (0.0-1.0); MONOCYTES % (AUTO) 9.1 %; NEUTROPHILS % (AUTO) 59.4 %; PLT - PLATELET COUNT 236 10^3/uL (130-450); RED BLOOD COUNT 3.87 10^6/uL (4.20-5.40); RED CELL DISTRIBUTION WIDTH 12.8 % (12.0-15.0); WHITE BLOOD COUNT 5.1 x10^3/uL (4.8-10.8)
[2022-07-05 09:53] LABS: ALBUMIN 4.2 g/dL (3.2-5.5); ALBUMIN/GLOBULIN RATIO 1.6 (1.0-2.2); ALKALINE PHOSPHATASE 56 IU/L (42-121); ALT ALANINE AMINOTRANSFERASE 21 IU/L (10-60); AST ASPARTATE AMINOTRANSFERASE 25 IU/L (10-42); BILIRUBIN,TOTAL 0.9 mg/dL (0.2-1.0); BUN - BLOOD UREA NITROGEN 16 mg/dL (6-20); CALCIUM 10.1 mg/dL (8.5-10.3); CARBON DIOXIDE - CO2 33 mmol/L (21-32); CHLORIDE 100 mmol/L (101-111); CHOL/HDL RATIO 2.2 (<4.4); CHOLESTEROL 150 mg/dL; CREATININE 0.6 mg/dL (0.4-1.0); GFR - MDRD 96 (>89); GLUCOSE 96 mg/dL (70-100); HDL CHOLESTEROL 67 mg/dL; LDL CHOLESTEROL,CALCULATED 70 mg/dL; POTASSIUM 3.6 mmol/L (3.5-5.0); SODIUM 141 mmol/L (135-145); TOTAL PROTEIN 6.8 g/dL (6.7-8.2); TRIGLYCERIDES 63 mg/dL; VLDL CHOLESTEROL 13 mg/dL
[2022-07-05 09:57] LABS: CRP - C-REACTIVE PROTEIN < 1.0 mg/dL (0-1.0)
[2022-07-05 10:03] LABS: THYROID STIMULATING HORMONE 0.86 uIU/mL (0.34-5.60)
[2022-07-05 12:15] LABS: ESTIMATED AVERAGE GLUCOSE 117 mg/dL (70-100); HEMOGLOBIN A1c% 5.7 % (4.27-6.07)
== END 2022-07-05 09:17 | disposition home or self-care (01) ==
LOC: LAB 09:16
PROVIDERS: ATTEND Nurse Practitioner
DX: I10 Essential (primary) hypertension (principal); E78.5 Hyperlipidemia, unspecified; R73.03 Prediabetes; E03.9 Hypothyroidism, unspecified; F32.A Depression, unspecified; R79.82 Elevated C-reactive protein (CRP)
CPT/HCPCS: 36415; 80053; 80061; 83036; 83721; 84443; 85025; 85651; 86140

== ENCOUNTER 2022-07-18 08:00 | Outpatient (CLI) | payer MEDICARE, OTHER ==
--- NOTE | 2022-07-18 17:09 | XRAY Report ---
PROCEDURE: Shoulder 2 View RT INDICATIONS: R SHOULDER PX TECHNIQUE: 2 views of the shoulder were acquired. COMPARISON: Right shoulder MRI 03/19/2018. FINDINGS: Bones: Postsurgical changes are seen from rotator cuff tendon repair with suture anchors in the great er tuberosity. Humeral head is high riding with complete narrowing of the acromiohumeral interval and associated degenerative changes. There are severe glenohumeral degenerative changes with remodeling of the articular surfaces. The surgical changes are seen at the acromioclavicular joint. Soft tissues: No suspicious soft tissue calcifications. IMPRESSION: 1.Metallic anchors in the humeral head are consistent with prior rotator cuff tendon repair. 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 2.Severe glenohumeral osteoarthrosis. 3.Postsurgical changes at the acromioclavicular joint. Reviewed by: Seng Pringle MD on 07/18/2022 5:08 PM PDT Approved by: Seng Pringle MD on 07/18/2022 5:08 PM PDT Station ID: [id number]
== END 2022-07-18 23:59 | disposition home or self-care (01) ==
LOC: DI.N 08:00
PROVIDERS: ATTEND Nurse Practitioner
DX: M19.011 Primary osteoarthritis, right shoulder (principal); R93.7 Abnormal findings on diagnostic imaging of other parts of musculoskeletal system; Z98.890 Other specified postprocedural states

== ENCOUNTER 2023-03-22 08:15 | Outpatient (CLI) | payer MEDICARE, OTHER ==
--- NOTE | 2023-03-22 17:29 | XRAY Report ---
PROCEDURE: Ribs w/PA Chest RT INDICATIONS: CHEST WALL PAIN TECHNIQUE: 2 views of the right ribs were acquired, along with a single view chest. COMPARISON: None. FINDINGS: Surgical changes and devices: None. Bones and chest wall: No fractures or dislocations. No suspicious bony lesions. Overlying soft tis sues appear unremarkable. Lungs and pleura: No pleural effusions or pneumothorax. Lungs appear clear. Mediastinum: Mediastinal contours appear normal. Heart size is normal. IMPRESSION: No displaced rib fracture or pneumothorax. Reviewed by: Harry Malagon MD on 03/22/2023 5:27 PM PDT Approved by: Harry Malagon MD on 03/22/2023 5:27 PM PDT Station ID: [id number]
== END 2023-03-22 08:30 | disposition home or self-care (01) ==
LOC: DI.N 08:15
PROVIDERS: ATTEND Physician Assistant
DX: R07.89 Other chest pain (principal)

== ENCOUNTER 2023-05-30 08:00 | Outpatient (CLI) | payer MEDICARE ==
[2023-05-30 13:27] LABS: FECAL OCCULT BLOOD (FIT) NEGATIVE (NEGATIVE)
== END 2023-05-30 23:59 | disposition home or self-care (01) ==
LOC: LAB.R 08:00
PROVIDERS: ATTEND Nurse Practitioner
DX: Z12.11 Encounter for screening for malignant neoplasm of colon (principal)
CPT/HCPCS: 82274

== ENCOUNTER 2023-05-31 09:26 | Outpatient (CLI) | payer MEDICARE ==
[2023-05-31 10:11] LABS: BASOPHILS % (AUTO) 0.8 %; EOSINOPHILS # (AUTO) 0.3 10^3/uL (0.0-0.7); HCT - HEMATOCRIT 34.6 % (37.0-47.0); HGB - HEMOGLOBIN 11.2 g/dL (12.0-16.0); LYMPHOCYTES # (AUTO) 1.4 10^3/uL (1.5-3.5); MEAN CORPUSCULAR HEMOGLOBIN 30.9 pg (27.0-31.0); MEAN CORPUSCULAR HGB CONC 32.4 g/dL (32.0-36.0); MEAN CORPUSCULAR VOLUME 95.3 fL (81.0-99.0); MEAN PLATELET VOLUME 9.1 fL (7.9-10.8); MONOCYTES # (AUTO) 0.4 10^3/uL (0.0-1.0); MONOCYTES % (AUTO) 8.9 %; NEUTROPHILS # (AUTO) 2.7 10^3/uL (1.5-6.6); NEUTROPHILS % (AUTO) 56.1 %; PLT - PLATELET COUNT 266 10^3/uL (130-450); RED BLOOD COUNT 3.63 10^6/uL (4.20-5.40); RED CELL DISTRIBUTION WIDTH 13.6 % (12.0-15.0); WHITE BLOOD COUNT 4.8 x10^3/uL (4.8-10.8)
[2023-05-31 10:31] LABS: ALBUMIN 4.3 g/dL (3.2-5.5); ALBUMIN/GLOBULIN RATIO 1.7 (1.0-2.2); BILIRUBIN,TOTAL 0.6 mg/dL (0.2-1.0); CALCIUM 10.4 mg/dL (8.5-10.3); CREATININE 0.7 mg/dL (0.6-1.3); POTASSIUM 3.6 mmol/L (3.5-4.5); TOTAL PROTEIN 6.8 g/dL (6.4-8.9)
[2023-05-31 10:44] LABS: BILIRUBIN,URINE NEGATIVE (NEGATIVE); GLUCOSE, URINE (UA) NEGATIVE (NEGATIVE); KETONES,URINE (UA) NEGATIVE (NEGATIVE); LEUKOCYTE ESTERASE, URINE NEGATIVE (NEGATIVE); NITRITE,URINE NEGATIVE (NEGATIVE); OCCULT BLOOD,URINE SMALL (NEGATIVE); PH,URINE 6.5 PH (5.0-7.5); PROTEIN,URINE 30 mg/dL (NEGATIVE); UROBILINOGEN,URINE 0.2 (NORMAL) E.U./dL (NORMAL)
[2023-05-31 10:45] LABS: CLARITY,URINE CLEAR (CLEAR)
[2023-05-31 10:49] LABS: THYROID STIMULATING HORMONE 1.66 uIU/mL (0.34-5.60)
--- NOTE | 2023-05-31 12:05 | XRAY Report ---
PROCEDURE: Chest 2 View X-Ray INDICATIONS: SOB TECHNIQUE: 2 views of the chest were acquired. COMPARISON: 03/22/2023 FINDINGS: Surgical changes and devices: None. Lungs and pleura: No pleural effusions or pneumothorax. Lungs are clear. Mediastinum: Mediastinal contours appear normal. Heart size is normal. Bones and chest wall: No suspicious bony lesions. Overlying soft tissues appear unremarkable. IMPRESSION: No acute cardiopulmonary process. Reviewed by: Dani Jimenze MD on 05/31/2023 11:04 AM [facility] Approved by: Dani Jimenez MD on 05/31/2023 11:04 AM [facility] Station ID: [id number]
--- NOTE | 2023-05-31 12:06 | XRAY Report ---
PROCEDURE: Knee 4 View LT INDICATIONS: KNEE PAIN LEFT TECHNIQUE: 4 views of the left knee(s) were acquired. COMPARISON: None. FINDINGS: Bones: No fractures or dislocations. No suspicious bony lesions. Mild medial compartment joint spac e narrowing Soft tissues: No knee joint effusion. No suspicious soft tissue calcifications or masses. IMPRESSION: Mild medial compartment joint space narrowing. No joint effusion Reviewed by: Dani Jimenez MD on 05/31/2023 11:05 AM [facility] Approved by: Dani Jimenez MD on 05/31/2023 11:05 AM [facility] Station ID: [id number]
== END 2023-05-31 09:27 | disposition home or self-care (01) ==
LOC: DI 09:26
PROVIDERS: ATTEND Nurse Practitioner
DX: R06.02 Shortness of breath (principal); M25.562 Pain in left knee; E03.9 Hypothyroidism, unspecified; R82.998 Other abnormal findings in urine; K92.1 Melena
CPT/HCPCS: 36415; 80053; 81003; 83880; 84443; 85025; 85379

== ENCOUNTER 2023-06-14 13:15 | Emergency (ER) | payer MEDICARE ==
[2023-06-14 13:34] VITALS: O2SAT 98
[2023-06-14 14:32] LABS: BASOPHILS # (AUTO) 0.1 10^3/uL (0.0-0.1); BASOPHILS % (AUTO) 1.1 %; EOSINOPHILS # (AUTO) 0.4 10^3/uL (0.0-0.7); EOSINOPHILS % (AUTO) 6.7 %; HCT - HEMATOCRIT 35.7 % (37.0-47.0); HGB - HEMOGLOBIN 11.7 g/dL (12.0-16.0); LYMPHOCYTES # (AUTO) 1.6 10^3/uL (1.5-3.5); LYMPHOCYTES % (AUTO) 28.5 %; MEAN CORPUSCULAR HGB CONC 32.8 g/dL (32.0-36.0); MEAN CORPUSCULAR VOLUME 94.7 fL (81.0-99.0); MEAN PLATELET VOLUME 9.2 fL (7.9-10.8); MONOCYTES # (AUTO) 0.4 10^3/uL (0.0-1.0); MONOCYTES % (AUTO) 7.1 %; NEUTROPHILS # (AUTO) 3.1 10^3/uL (1.5-6.6); NEUTROPHILS % (AUTO) 56.2 %; PLT - PLATELET COUNT 282 10^3/uL (130-450); RED BLOOD COUNT 3.77 10^6/uL (4.20-5.40); RED CELL DISTRIBUTION WIDTH 13.6 % (12.0-15.0); WHITE BLOOD COUNT 5.5 x10^3/uL (4.8-10.8)
--- NOTE | 2023-06-14 14:43 | XRAY Report ---
PROCEDURE: Chest 1 View X-Ray INDICATIONS: Chest Pain TECHNIQUE: One view of the chest was acquired. COMPARISON: 05/31/2023 FINDINGS: Surgical changes and devices: None. Lungs and pleura: No pleural effusions or pneumothorax. Lungs are clear. Mediastinum: Mediastinal contours appear normal. Heart size is normal. Bones and chest wall: No suspicious bony lesions. Overlying soft tissues appear unremarkable. IMPRESSION: No acute cardiopulmonary process. Reviewed by: Oscar Polk MD on 06/14/2023 2:42 PM PDT Approved by: Oscar Polk MD on 06/14/2023 2:42 PM PDT Station ID: [id number]
--- NOTE | 2023-06-14 14:46 | ED Physician Documentation ---
History of Present Illness - Stated complaint Stated Complaint: SOA - Chief complaint Chief Complaint: Resp - Additonal information Additional information: 78-year-old female presents emergency department for evaluation of shortness of air. Symptoms began about a month ago. She finds that she is short of air with exertion but not having any chest pain. She states that the end of the day she finds that she has bilateral lower ankle edema. She states that about 5 weeks ago she had a viral illness. Following this she had about 1 week of melena. She discussed this with her primary care doctor and she received a referral to GI. Patient is also scheduled to see her full stack software developer on 04 July. She denies any fever. Denies exertional chest pain or lower extremity claudication. No calf pain swelling or tenderness. She is not anticoagulated. Past medical history is most significant for hypothyroidism, hyperlipidemia, anxiety/depression and TIA x2. She does take Plavix and aspirin daily. Not on any blood pressure medications or anticoagulants otherwise. Review of Systems Constitutional: denies: Fever Ears: reports: Reviewed and negative Cardiac: reports: Pedal edema. denies: Chest pain / pressure, Palpitations, Calf pain Respiratory: reports: Dyspnea. 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 - Present Medications Home Medications: Ambulatory Orders Medication Instructions Recorded Confirmed Aspirin [Aspir-Low] 81 mg PO DAILY 01/20/16 04/20/20 Citalopram Hydrobromide 40 mg PO DAILY 01/20/16 04/20/20 [Citalopram HBr] Levothyroxine [Synthroid] 75 mcg PO QDAC 01/20/16 04/20/20 Simvastatin 40 mg PO DAILY 01/20/16 04/20/20 hydroCHLOROthiazide 25 mg PO DAILY 01/20/16 04/20/20 [Hydrochlorothiazide] Cyclobenzaprine [Flexeril] 10 mg PO TID PRN #20 tablet 02/27/18 04/20/20 Losartan [Cozaar] 100 mg PO DAILY 02/27/18 04/20/20 Alendronate Sodium 70 mg PO Q7D 04/20/20 04/20/20 Fluticasone [Flonase] 1 spray LLOYD PRN PRN 04/20/20 04/20/20 Clopidogrel [Plavix] 75 mg PO DAILY #30 tablet 04/21/20 Ciprofloxacin HCl [Cipro] 500 mg PO BID #20 tablet 06/21/21 HYDROcod/ACETAM 5/325 [Vincent 5/325] 1 - 2 tab PO Q6H PRN #10 tablet 06/21/21 - Allergies Allergies/Adverse Reactions: Allergies Allergy/AdvReac Type Severity Reaction Status Date / Time codeine AdvReac Itching Verified 11/12/21 18:53 meperidine HCl * AdvReac Nausea Verified 11/12/21 18:53 [From Demerol] - Social History Does the pt smoke?: No Smoking Status: Former smoker Does the pt drink ETOH?: No Does the pt have substance abuse?: No - Immunizations Immunizations are current?: Yes - POLST Patient has POLST: No PD ED PE NORMAL - General General: Alert and oriented X 3, No acute distress, Well developed/nourished - HEENT HEENT: Atraumatic, Moist mucous membranes - Neck Neck: Supple, no meningeal sign - Cardiac Cardiac: RRR, No murmur - Respiratory Respiratory: No respiratory distress, Clear bilaterally - Abdomen Abdomen: Normal bowel sounds, Soft - Derm Derm: Normal color, Warm and dry Results - Vitals Vitals: Vital Signs - 24 hr 06/14/23 06/14/23 13:18 15:27 Heart Rate 101 H 74 Respiratory 26 H 23 Rate Blood Pressure 129/67 124/65 O2 Saturation 98 98 Oxygen O2 Source Room air - EKG (time done) 1449 EKG releavant findings:: EKG personally interpreted by author of this note. Relevant findings are: Rate: Rate (enter#) (80) Rhythm: NSR [place]: LAD Intervals: Normal ND. No: Prolonged QT QRS: Poor R wave progression Ischemia: Normal ST segments Compare to prior EKG: Old EKG unavailable Computer interpretation: Agree with computer - Labs Labs: Laboratory Tests 06/14/23 06/14/23 06/14/23 14:26 14:26 14:26 WBC 5.5 RBC 3.77 L Hgb 11.7 L Hct 35.7 L MCV 94.7 MCH 31.0 MCHC 32.8 RDW 13.6 Plt Count 282 MPV 9.2 Neut # (Auto) 3.1 Lymph # (Auto) 1.6 Haakon # (Auto) 0.4 Eos # (Auto) 0.4 Baso # (Auto) 0.1 Absolute Nucleated RBC 0.00 Nucleated RBC % 0.0 Sodium 139 Potassium 3.5 Chloride 102 Carbon Dioxide 30 Anion Gap 7.0 BUN 13 Creatinine 0.7 Estimated GFR (MDRD) 81 L Glucose 106 H Calcium 9.9 Total Bilirubin 0.6 AST 34 ALT 27 Alkaline Phosphatase 63 B-Natriuretic Peptide 10 Total Protein 6.9 Albumin 4.0 Globulin 2.9 Albumin/Globulin Ratio 1.4 Lipase 42 TSH Thyroxine (T4) 06/14/23 14:26 WBC RBC Hgb Hct MCV MCH MCHC RDW Plt Count MPV Neut # (Auto) Lymph # (Auto) Haakon # (Auto) Eos # (Auto) Baso # (Auto) Absolute Nucleated RBC Nucleated RBC % Sodium Potassium Chloride Carbon Dioxide Anion Gap BUN Creatinine Estimated GFR (MDRD) Glucose Calcium Total Bilirubin AST ALT Alkaline Phosphatase B-Natriuretic Peptide Total Protein Albumin Globulin Albumin/Globulin Ratio Lipase TSH 0.59 Thyroxine (T4) 8.0 - Rads (name of study) cxr Relevant Findings:: Final report received (No acute cardiopulmonary process) PD Medical Decision Making - ED course Complexity details: reviewed results, re-evaluated patient, d/w patient ED course: 78-year-old female presents emergency department for evaluation of progressive shortness of air. Reports that the symptoms began 1 month ago. She finds that [place] the beach given the nature talks she is progressively short of air especially worse when bending down. She finds that she does have some pedal edema at the end of the day. It resolves overnight when sleeping. Past medical history is most significant for TIA x2 on Plavix and aspirin. No history of hypertension or heart failure. She does not take blood pressure medications. Here in the emergency department on exam she appears remarkably well. Room air saturations 100%. No tachycardia or fever or hypotension. I did obtain CBC, electrolytes and a BNP. Per my interpretation no acute worrisome findings. A chest x-ray was without findings suggest pneumonia, pneumothorax or pleural effusion. Clinically patient does not appear to be in congestive heart failure. I did consider PE though by Wells criteria she would be considered very low risk. In addition she had a D-dimer completed several weeks ago that was negative. Patient has unremarkable cardiopulmonary exam without wheeze or crackles. I have low suspicion for a bronchitis, asthma or COPD flare. Given her age I think important she have close and prompt follow-up with cardiology for which she does have an appointment scheduled on July 04. She is already scheduled to be seen by powertrain control systems engineer for her melena which she had about 5 weeks ago after viral illness. Should be noted that her hemoglobin is normal today. At this time she is discharged home in stable condition with usual emergent return precautions discussed for worsening symptoms. Departure - Departure Disposition: Home, Self Care Clinical Impression: Shortness of breath Condition: Stable Record reviewed to determine appropriate education?: Yes Comments: As discussed at the bedside your labs today were essentially normal. Your chest x-ray was also normal. You are not exhibiting signs of heart failure today in the emergency department. However we do not have a good explanation for your progressive shortness of air over the last month. It is important you continue to follow-up with your full stack software developer on the fifth as already scheduled. You can continue to take your usual medications. If at any point you develop sudden difficulty breathing, have chest pain or any fainting episodes then you should return immediately to the ER for a repeat evaluation. Forms: PCP List
[2023-06-14 14:53] LABS: ALBUMIN/GLOBULIN RATIO 1.4 (1.0-2.2); BILIRUBIN,TOTAL 0.6 mg/dL (0.2-1.0); CALCIUM 9.9 mg/dL (8.5-10.3); CREATININE 0.7 mg/dL (0.4-1.0); POTASSIUM 3.5 mmol/L (3.5-5.0); TOTAL PROTEIN 6.9 g/dL (6.7-8.2)
[2023-06-14 15:22] LABS: THYROID STIMULATING HORMONE 0.59 uIU/mL (0.34-5.60)
[2023-06-14 16:07] VITALS: BP 128/76
== END 2023-06-14 16:06 | disposition home or self-care (01) ==
LOC: ED 13:15
DX: R06.02 Shortness of breath (principal); I10 Essential (primary) hypertension; Z87.891 Personal history of nicotine dependence
CPT/HCPCS: 36415; 80053; 83690; 83880; 84436; 84443; 85025; 93005; 99283; 99284

== ENCOUNTER 2023-09-14 09:59 | Outpatient (CLI) | payer MEDICARE ==
[2023-09-14 10:21] LABS: BASOPHILS % (AUTO) 0.9 %; EOSINOPHILS # (AUTO) 0.3 10^3/uL (0.0-0.7); EOSINOPHILS % (AUTO) 5.9 %; HCT - HEMATOCRIT 35.4 % (37.0-47.0); HGB - HEMOGLOBIN 11.4 g/dL (12.0-16.0); LYMPHOCYTES # (AUTO) 1.3 10^3/uL (1.5-3.5); LYMPHOCYTES % (AUTO) 27.3 %; MEAN CORPUSCULAR HGB CONC 32.2 g/dL (32.0-36.0); MEAN PLATELET VOLUME 9.5 fL (7.9-10.8); MONOCYTES # (AUTO) 0.4 10^3/uL (0.0-1.0); MONOCYTES % (AUTO) 8.7 %; NEUTROPHILS # (AUTO) 2.6 10^3/uL (1.5-6.6); PLT - PLATELET COUNT 243 10^3/uL (130-450); RED BLOOD COUNT 4.07 10^6/uL (4.20-5.40); RED CELL DISTRIBUTION WIDTH 13.9 % (12.0-15.0); WHITE BLOOD COUNT 4.6 x10^3/uL (4.8-10.8)
[2023-09-14 11:00] LABS: FERRITIN 7.1 ng/mL (11.0-306.8)
== END 2023-09-14 10:00 | disposition home or self-care (01) ==
LOC: LAB 09:59
PROVIDERS: ATTEND Nurse Practitioner
DX: D64.9 Anemia, unspecified (principal)
CPT/HCPCS: 36415; 82607; 82728; 82746; 83540; 84466; 85025

== ENCOUNTER 2023-12-15 10:09 | Outpatient (CLI) | payer MEDICARE ==
[2023-12-15 10:19] LABS: BASOPHILS # (AUTO) 0.1 10^3/uL (0.0-0.1); BASOPHILS % (AUTO) 0.9 %; EOSINOPHILS # (AUTO) 0.3 10^3/uL (0.0-0.7); EOSINOPHILS % (AUTO) 5.6 %; HCT - HEMATOCRIT 38.6 % (37.0-47.0); HGB - HEMOGLOBIN 12.7 g/dL (12.0-16.0); LYMPHOCYTES # (AUTO) 1.6 10^3/uL (1.5-3.5); LYMPHOCYTES % (AUTO) 27.5 %; MEAN CORPUSCULAR HEMOGLOBIN 29.2 pg (27.0-31.0); MEAN CORPUSCULAR HGB CONC 32.9 g/dL (32.0-36.0); MEAN CORPUSCULAR VOLUME 88.7 fL (81.0-99.0); MEAN PLATELET VOLUME 9.1 fL (7.9-10.8); MONOCYTES # (AUTO) 0.5 10^3/uL (0.0-1.0); MONOCYTES % (AUTO) 8.4 %; NEUTROPHILS # (AUTO) 3.3 10^3/uL (1.5-6.6); NEUTROPHILS % (AUTO) 57.4 %; PLT - PLATELET COUNT 250 10^3/uL (130-450); RED BLOOD COUNT 4.35 10^6/uL (4.20-5.40); WHITE BLOOD COUNT 5.7 x10^3/uL (4.8-10.8)
[2023-12-15 10:54] LABS: FERRITIN 12.8 ng/mL (11.0-306.8)
== END 2023-12-15 10:10 | disposition home or self-care (01) ==
LOC: LAB 10:09
PROVIDERS: ATTEND Nurse Practitioner
DX: M25.562 Pain in left knee (principal)
CPT/HCPCS: 36415; 82728; 83540; 84466; 85025

== ENCOUNTER 2024-02-22 09:44 | Outpatient (CLI) | payer MEDICARE ==
[2024-02-22 10:27] LABS: CALCIUM 10.3 mg/dL (8.5-10.3); CREATININE 0.8 mg/dL (0.6-1.3); POTASSIUM 3.5 mmol/L (3.5-4.5)
--- NOTE | 2024-02-22 17:27 | DEXA Report ---
PROCEDURE: Dexa Spine and/or Hip INDICATIONS: POST MENOPAUSAL TECHNIQUE: Dual energy x-ray absorptiometry (DXA) was performed on a [employer] System. Regions measur ed are the AP Spine, femoral neck, and if needed forearm. COMPARISON: DEXA on November 02, 2021 FINDINGS: Lumbar Spine: Bone Mineral Density: 1.031 g/cm/cm,T score: -1.2. Since the most recent prior study, there has been a statistically significant increase in bone mineral density by 9.4 percent. This is favored to be a rtifactually elevated given the L4 vertebral body includes the L5 spinous process and facet arthropat hy. Left Femoral Neck: Bone Mineral Density: 0.830 g/cm/cm, T score: -1.5. Left Hip: Bone Mineral Density: 0.995 g/cm/cm,T score: -0.1. Since the most recent prior study, there has been a statistically significant decrease in bone mineral density by 4.1 percent. (T score greater or equal to -1.0: NORMAL) (T score from -1.1 to -2.4: OSTEOPENIA) (T score less than or equal to -2.5 to: OSTEOPOROSIS) Impression: By WHO criteria, this patient has low bone density (osteopenia). Interval statistical increase in bone mineral density of the lumbar spine which is favored to be fals yuki elevated given the L4 vertebral body includes the L5 spinous process and facet arthropathy. Inter gibran statistical decrease in bone mineral density of the hip. Patients with diagnosis of osteoporosis or osteopenia should have regular bone mineral density assess ment. For those eligible for Medicare, routine testing is allowed once every 2 years. Testing frequ ency can be increased for patients who have rapidly progressing disease or for those who are receivin g medical therapy to restore bone mass. Reviewed by: Francesca Macedo MD on 02/22/2024 5:26 PM PDT Approved by: Francesca Macedo MD on 02/22/2024 5:26 PM PDT Station ID: [id number]
== END 2024-02-22 09:45 | disposition home or self-care (01) ==
LOC: DI 09:44
PROVIDERS: ATTEND Nurse Practitioner
DX: M85.89 Other specified disorders of bone density and structure, multiple sites (principal); Z78.0 Asymptomatic menopausal state; I10 Essential (primary) hypertension
CPT/HCPCS: 36415; 80048